=== PATIENT | male | born 1955 | race Caucasian/White ===

== ENCOUNTER → 2017-07-27 | Day surgery (SDC) | payer OTHER ==
[2017-07-21 14:39] VITALS: Ht 172.7 cm; Wt 84.1 kg
[~2017-07-27] VITALS: Ht 172.7 cm; Wt 84.1 kg
[~2017-07-27] MED LIST: 500ML BSS 0.3ML EPI 1:1000PF IRRIG ONE; ACETAMINOPHEN 325 MG TAB PO PRN; AMVISC PLUS 0.8ML SYRINGE INT OCU ONE; ASPECOTC PO; ATROPINE SULFATE 0.4 MG/ML 1 ML VIAL IV PRN; BSS FLUSH ONE; BUPR-79 PO; CHOL100027 PO; COEN1TAB3 PO; CYAN10004 PO; CYCLOPENTOLATE HCL 1% OP SOLN PER DROP CHARGE OPL SCH; ENDOCOAT 0.85ML SYRINGE INT OCU ONE; EpHEDrine SULFATE INJ 50 MG/ML AMP IV PRN; EpINEphrine INJ 1MG/ML AMP 1 MG/ML AMP ONE; GABA-112 PO; LACTATED RINGER'S 1000ML 500 ML IV SCH; LIDOCAINE 4% OP SOLN DROP CHARGE ONE; LIDOCAINE 4% OP SOLN DROP CHARGE OPL SCH; LIDOCAINE HCL 1% MPF 2 ML VIAL ONE; MIDAZOLAM HCL 1 MG/ML 2ML VIAL ONE; MIX: 4ML BSS 1ML EPI 1:1000 PF TOP ONE; MOXIFLOXACIN OPH SOLN PER DROP CHARGE ONE; MOXIFLOXACIN OPH SOLN PER DROP CHARGE OPL SCH; MULT-839 PO; PHENYLEPHRINE HCL 2.5% OP SOLN PER DROP CHARGE OPL SCH; POVIDONE-IODINE OP SOLN 30 ML BTL ONE; PRLSR20 PO; PROPARACAINE 0.5% OP SOLN PER DROP CHARGE OPL SCH; RANI150T85 PO; SAW450CA5 PO; SILD100T PO; SIMV20TA2 PO; TOBRAMYCIN/DEXAMETHASONE OPH OINT PER APPLN CHARGE ONE; TROPICAMIDE 1% OP SOLN PER DROP CHARGE OPL SCH
[2017-07-27] MEDS: PHENYLEPHRINE HCL 2.5% OP SOLN PER DROP CHARGE OPL SCH ×2 (08:28→08:33)
[2017-07-27] MEDS: TROPICAMIDE 1% OP SOLN PER DROP CHARGE OPL SCH ×2 (08:29→08:34)
[2017-07-27] MEDS: CYCLOPENTOLATE HCL 1% OP SOLN PER DROP CHARGE OPL SCH ×2 (08:30→08:34)
[2017-07-27] MEDS: MOXIFLOXACIN OPH SOLN PER DROP CHARGE OPL SCH ×2 (08:31→08:35)
--- NOTE | 2017-07-27 08:47 | History & Physical Bridge - SC ---
H&P Re-Evaluation Bridge Note: I have examined the patient, reviewed the History & Physical and in the interval since the performance of the History & Physical I have noted the following changes of clinical significance: No changes noted
--- NOTE | 2017-07-27 09:56 | [facility] Post Operative Brief Note ---
Immediate Operative Summary Operative Date Jul 27, 2017. Pre-Operative Diagnosis Left Eye Cataract Post-Operative Diagnosis Same Procedure(s) Performed Left Cataract Phacoemulsification With Intraocular Lens Implant Surgeon Dr. Tommy Patterson Corporate Scheduler Surgeon(s) None Estimated Blood Loss 0 Findings Consistent with Post-Op Diagnosis Specimens None Anesthesia Type MAC Complication(s) none Disposition Accompanied Pt To Recovery: no Disposition:
--- NOTE | 2017-07-27 09:57 | [facility] Operative Report ---
Operative Report Date of Service Jul 27, 2017. Operative Report DATE OF OPERATION: 07/27/17 PREOPERATIVE DIAGNOSIS: Senile nuclear cataract, left eye POSTOPERATIVE DIAGNOSIS: Senile nuclear cataract, left eye PROCEDURE PERFORMED: Phacoemulsification with intraocular lens implantation, left eye SURGEON: Dr. Oswaldo Patterson ANESTHESIA: Topical with 1% intracameral lidocaine and monitored anesthesia care COMPLICATIONS: None DESCRIPTION OF PROCEDURE: After positively identifying the patient both verbally and by wristband in the preoperative area, the left eye was marked as the operative eye. The patient was then brought back to the operating room by the anesthesia and nursing staff where they were given a drop of Lidocaine and betadine into the operative eye. They were then sterilely prepped and draped in the standard fashion typical for ophthalmic surgery. Steri-strips were placed along the upper eyelids to keep the lashes back, and a lid speculum was placed into the operative eye. At this point, a documented time out was performed with members of the ophthalmology, nursing, and anesthesia staffs all agreeing upon the correct patient, correct location for surgery, correct procedure, and correct type and power of intraocular lens to be implanted. The microscope was then swung into position. First, a paracentesis wound was made using a sideport blade. Then, in sequence, 1% preservative-free lidocaine followed by Endocoat viscoelastic was injected into the anterior chamber. Next , the main incision was made with a keratome blade in triplanar fashion. A sharp cystotome was introduced into the eye and used to create a tear in the anterior capsule, which was directed into a continuous curvilinear capsulorrhexis using Utrata forceps. Hydrodissection was then performed with BSS on a flat-tip cannula. Next, the phacoemulsification handpiece was introduced into the eye and used to remove the nucleus in a [id number] fashion. This was done without complication and then the irrigation-aspiration handpiece was introduced into the eye and used to remove all remaining cortical and epinuclear material. Amvisc was then injected into the anterior chamber as well as into the capsular bag and using the lens injector system, an MX60E 22.5 D lens, serial number [id number], and expiration date 03/2020 was injected into the capsular bag and rotated into the correct position. Next, the irrigation- aspiration handpiece was used to remove all remaining Amvisc. BSS was used to hydrate the main wound, and then BSS was injected into the paracentesis site to reach physiologic pressure and then the main wound was checked and found to be watertight. The patient was given drops of Vigamox and Tobradex ointment into the operative eye, and then the surrounding area was cleaned and dried. A clear plastic shield was placed over the eye and the patient was then sat up and taken from the operating room by the anesthesia staff having tolerated the procedure well and suffering no complications. DISPOSITION: The patient was returned to the recovery room in stable condition. I attest to the content of the Intraoperative Record and any orders documented therein. Any exceptions are noted below.
--- NOTE | 2017-07-27 09:58 | Discharge Instructions-SurgCtr ---
Discharge Instructions Date of Service Jul 27, 2017. Visit Reason for Visit: Cataract Left Eye Discharge Discharge Diagnosis / Problem: left cataract Discharge Goals Goal(s): Decrease discomfort, Improve function Activity Recommendations Activity Limitations: as noted below Anesthesia . Post Anesthesia Instructions: If you have had General Anesthesia or IV Sedation: * Do not drive today. * Resume driving when surgeon permits. * Do not make important decisions or sign legal documents today. * Call surgeon for: 1. Temperature elevations greater than 101 degrees F. 2. Uncontrollable pain. 3. Excessive bleeding. 4. Persistent nausea and vomiting. 5. Medication intolerance (nausea, vomiting or rash). * For nausea and vomiting use only clear liquids such as: tea, soda, bouillon until nausea subsides, then gradually increase diet as tolerated. * If you have any concerns or questions, call your surgeon's office. If physician is unavailable and it is an emergency, call 911 or go to the nearest emergency room. . Instructions / Follow-Up Instructions / Follow-Up ACTIVITY RECOMMENDATIONS: * Light activities. * You may walk outside, read, watch television. * You may notice redness on the white part of the eye and some blurry vision - this is normal. MEDICATIONS: Resume previous medications unless instructed otherwise by your surgeon. Start all eye drops at 12 pm today: * Eye drops (today): Prednisone - one drop in operative eye every 2 hours while awake Ofloxacin - one drop in operative eye every 2 hours while awake Ketorolac - one drop in operative eye 4 times daily SPECIAL CARE INSTRUCTIONS: * Tape plastic shield over eye to sleep at night. Call your doctor at with any concerns or problems. FOLLOW UP VISIT: Follow-up with Dr Patterson at [facility] as scheduled. Diet Recommendations Home Diet: no limitations Procedures Procedures Performed: Left Cataract Phacoemulsification With Intraocular Lens Implant Pending Studies Studies pending at discharge: no Medical Emergencies . Who to Call and When: Medical Emergencies: If at any time you feel your situation is an emergency, please call 911 immediately. . Non-Emergent Contact Non-Emergency issues call your: Surgeon . . "Provider Documentation" section prepared by Oswaldo Patterson. .
[2017-07-27 09:59] VITALS: TEMP 36.3
--- NOTE | 2017-07-27 10:24 | Anesthesia Progress Nt - [facility] ---
Anesthesia Post Op Note Date & Time Jul 27, 2017 at 10:23 Vital Signs Pain Intensity: 0 Vital Signs Past 12 Hours Date Time Temp Pulse Resp B/P (MAP) Pulse Ox O2 Delivery O2 Flow Rate FiO2 07/27/17 09:59 36.3 75 16 112/79 (90) 94 Room Air 07/27/17 08:19 36.5 70 18 128/84 (99) 94 Room Air Notes Mental Status: alert / awake / arousable, participated in evaluation Pt Amnestic to Procedure: Yes Nausea / Vomiting: adequately controlled Pain: adequately controlled Airway Patency, RR, SpO2: stable & adequate BP & HR: stable & adequate Hydration State: stable & adequate Anesthetic Complications: no major complications apparent
[2017-07-27 10:30] VITALS: BP 113/79; PULSE 61; O2SAT 95
== END | disposition home or self-care (01) ==
LOC: X.SURG 08:06
PROVIDERS: ATTEND Ophthalmology
DX: H25.12 Age-related nuclear cataract, left eye (principal); F32.9 Major depressive disorder, single episode, unspecified; Z98.41 Cataract extraction status, right eye; F17.200 Nicotine dependence, unspecified, uncomplicated

== ENCOUNTER 2019-01-25 13:30 | Inpatient (IN) ==
[2019-01-25] MEDS ORDERED: ASPIRIN CHEW 324 MG PO STA (14:18)
[2019-01-25 14:44] LABS: Base Excess VBG 1.8 mEq/L; Oxygen Saturation VBG 60.7 %; pH VBG 7.46 (7.36-7.41)
[2019-01-25 14:45] LABS: Basophils # (auto) 0.03 K/uL (0-0.2); Basophils % (auto) 0.3 %; Eosinophils % (auto) 5.4 %; Hematocrit (blood only) 46.7 % (42-52); Hemoglobin 17.1 g/dL (14.0-18.0); Immature Granulocytes # (auto) 0.06 K/uL (0.00-0.02); Immature Granulocytes % (auto) 0.6 %; Lymphocytes # (auto) 2.19 K/uL (1.2-3.4); Lymphocytes % (auto) 23.7 %; Mean Corpuscular Hemoglobin 31.3 pg (25-34); Mean Corpuscular Hgb Conc 36.6 g/dL (32-36); Mean Corpuscular Volume 85.4 fL (80-100); Mean Platelet Volume 8.8 fL (7.4-10.4); Monocytes % (auto) 10.8 %; Neutrophils # (auto) 5.47 K/uL (1.4-6.5); Neutrophils % (auto) 59.2 %; Platelet Count 186 K/uL (130-400); RDW Coefficient of Variation 14.2 % (11.5-14.5); Red Blood Count 5.47 M/uL (4.7-6.1); White Blood Count 9.25 K/uL (4.8-10.8)
[2019-01-25] MEDS ORDERED: ALBUT/IPRATROP 3MG/0.5MG NEB 3 ML VIAL NEB STA (14:48)
[2019-01-25] MEDS ORDERED: methylPREDNISolone 125 MG/2 ML VIAL IV STA (14:48)
[2019-01-25 14:56] LABS: Partial Thromboplastin Time 27.3 Seconds (21.0-31.0); Prothrombin Time 10.2 Seconds (9.0-12.0)
[2019-01-25 15:03] LABS: D Dimer 980 ug/L FEU (0-500)
[2019-01-25 15:05] LABS: BUN Creatinine Ratio 7.5 (10-20); Blood Urea Nitrogen 9 mg/dl (7-18); Calcium 8.6 mg/dl (8.5-10.1); Carbon Dioxide 24 mmol/L (21-32); Chloride 107 mmol/L (98-107); Creatinine Clr Calc Pharmacy 63.5 ml/min; Est GFR (African American) 73.1; Est GFR (Non-African American) 63.1; Glucose 96 mg/dl (70-99); Lipase 109 U/L (73-393); Potassium 4.2 mmol/L (3.5-5.1); Sodium 137 mmol/L (136-145)
[2019-01-25 15:10] LABS: Troponin I < 0.015 ng/ml (0-0.045)
--- NOTE | 2019-01-25 15:12 | XRay Report ---
XR chest 2V PA/lateral CLINICAL HISTORY: Atypical chest pain COMPARISON STUDY: No previous studies for comparison. FINDINGS: The heart is normal in size. The patient is mildly hyperinflated. There is no lobar consoli dation. There is mild basilar interstitial thickening. There is no pneumothorax.[ IMPRESSION: Mild interstitial thickening with a basilar predominance. This finding is of uncertain ch ronicity. There is no lobar consolidation. Electronically signed by: Marvel Zee M.D. 01/25/2019 3:11 PM
[2019-01-25] MEDS ORDERED: OPTIRAY 320 125ml IV PRN (15:38)
--- NOTE | 2019-01-25 15:57 | CT Scan Report ---
CT angio chest PE protocol CLINICAL HISTORY: 63 years-old Male presenting with atypical chest pain, clinical concern for pulmona ry embolus. TECHNIQUE: Multidetector CT angiography of the chest was performed after administration of intravenou s contrast. 3-D volumetric and/or maximum intensity projection (MIP) images were subsequently reconst ructed for review. IV contrast: Optiray 320. One or more dose lowering techniques were used consisten t with the principles of ALARA (as low as reasonably achievable), including automatic exposure contro l, mA or kV adjustment to individual patient size, and/or use of iterative reconstruction. COMPARISON: Chest x-ray from earlier today. CT DOSE (mGy.cm): The estimated cumulative dose is 500.28 mGy.cm. FINDINGS: Body Former topogram: Unremarkable. Pulmonary vasculature: The study is adequate for assessment of the pulmonary vascular tree. No filling defect within the pul monary arteries to suggest embolus. Main pulmonary artery is not enlarged. No flattening of the inter ventricular septum. No intracardiac filling defect. No reflux of contrast into the hepatic veins. Remaining chest: Soft tissues: Normal thyroid and thoracic inlet. Mediastinal lymph nodes measuring up to 17 mm primar hiro in the prevascular, aortopulmonary window, and precarinal regions. Smaller bilateral hilar lymph nodes are present. Atherosclerosis of the aorta. Normal heart size. Coronary artery calcification. No pericardial or pleural effusion. Upper abdomen normal. Lungs and airways: No pneumothorax. Defects likely debris within the lower trachea (series 4 image 188). Mild diffuse bronchial wall thic kening. Centrilobular emphysema noted. Pulmonary arteries are not significantly enlarged relative to adjacent bronchi. Mild interlobular septal thickening. Diffuse centrilobular groundglass nodularity m ost severely in the right upper lobe. Patchy added density of the lungs. Solid peripheral 10 mm nodul e containing a punctate eccentric calcification in the dependent right lower lobe (series 4 image 118 ). No additional nodules appreciated. Musculoskeletal: Normal osseous structures. IMPRESSION: 1. Centrilobular groundglass nodularity with patchy added density most prominently in the right uppe r lobe is most concerning for an infectious bronchiolitis or other atypical infectious etiology. This could also be inflammatory such as in the setting of smoking-related lung injury with severe respira tory bronchiolitis and/or desquamative interstitial pneumonia. Additional inflammatory etiologies are possible. 2. This is on a background of smoking related lung injury with emphysema and bronchitis. 3. Solid 10 mm right lower lobe pulmonary nodule. Follow-up per Fleischner Society 2017 criteria bel ow. 4. Mediastinal and bilateral hilar lymphadenopathy. This is most likely reactive but should be follo wed to exclude a neoplastic etiology. 5. No evidence of pulmonary embolus. Summary of Fleischner Society 2017 Recommendations (H Erasmo et al. Guidelines for management of i ncidental pulmonary nodules detected on CT images: From the Fleischner Society 2017. Radiology 2017; 284: 228-243.) SOLID NODULES Single nodule; size < 6 mm * Low risk patients: No routine follow-up * High risk patients: Optional CT at 12 months Single nodule; size 6-8 mm * Low risk patients: CT at 6-12 months, then consider CT at 18-24 months * High risk patients: CT at 6-12 months, then at 18-24 months Single nodule; size > 8 mm * Either low or high risk patients: Considered CT at 3 months, PET/CT, or tissue sampling Multiple nodules; size < 6 mm * Low risk patients: No routine follow up * High risk patients: Optional CT at 12 months Multiple nodules; size 6-8 mm * Low risk patients: CT at 3-6 months, then consider CT at 18-24 months * High risk patients: CT at 3-6 months, then at 18-24 months Multiple nodules; size > 8 mm * Low risk patients: CT at 3-6 months, then consider at 18-24 months * High risk patients: CT at 3-6 months, then at 18-24 months SUBSOLID NODULES Single ground-glass nodule * Nodule size < 6 mm: No routine follow-up * Nodule size > or = 6 mm: CT at 6-12 months to confirm persistence, then CT every 2 years until 5 y ears Single part-solid nodule * Nodule size < 6 mm: No routine follow-up * Nodules size > or = 6 mm: CT at 3-6 months to confirm persistence. If unchanged and solid componen t remains < 6 mm, annual CT should be performed for 5 years Multiple nodules * Nodule size < 6 mm: CT at 3-6 months. If stable, consider CT at 2 and 4 years. * Nodules size > or = 6 mm: CT at 3-6 months. Subsequent management based on the most suspicious nod ule(s) NOTE: 1) These guidelines apply to incidental nodules. These guidelines do NOT apply to patients younger th an 35 years, immunocompromised patients, or patients with cancer. 2) Risk categories: * Low risk patients: Minimal or absent history of smoking and/or other known risk factors * High risk patients: History of smoking, exposure to other carcinogens, emphysema, fibrosis, upper lobe location, family history of lung cancer, etc. 3) If a nodule up to 8 mm is partly solid or is ground glass, further follow-up is required after 24 months to exclude possible slow growing adenocarcinoma. Electronically signed by: Ton Frias M.D. 01/25/2019 3:56 PM
[2019-01-25] MEDS ORDERED: cefTRIAXone SODIUM 1 GM ADDVIAL IV STA (16:28)
[2019-01-25] MEDS ORDERED: AZITHROMYCIN 250 MG TAB PO ONE (16:28)
[2019-01-25] MEDS ORDERED: cefTRIAXone SODIUM 1000MG/50ML D5W IV ONE (16:53)
--- NOTE | 2019-01-25 17:53 | History & Physical Report ---
Date of Service January 25, 2019 Assessment & Plan (1) COPD with hypoxia: (2) Hypoxia: (3) Pneumonia: (4) Respiratory distress: (5) COPD exacerbation: Patient was started on Rocephin and Zithromax in the ER. Continue the same. Add IV Solu-Medrol. DuoNeb breathing treatment per protocol. May consider pulmonary consultation if not symptomatically better by a.m. Continue with DVT prophylaxis. Repeat labs in a.m. CODE STATUS full code. Titrate nasal cannula oxygen according to pulse ox to keep pulse ox more than 92%. History of Present Illness Chief Complaint: sob Primary Care Provider: Rose Marie Hall The patient is 63 years old male with history of COPD and chronic shortness of breath. Today the patient is complaining of increasing shortness of breath and wheezing and his nasal cannula oxygen requirements are high. He denies any fever. No hemoptysis. He has occasional cough. No chest pain. He is complaining of chest congestion. The patient states that he is up-to-date with his flu vaccination and pneumonia vaccination. He is ex-smoker. Further work-up done in the ER shows that patient has COPD exacerbation and right-sided pneumonia. He will be admitted for further evaluation and management. Patient was started on IV antibiotics and IV steroids in the emergency room. Allergies Allergy/AdvReac Type Severity Reaction Status Date / Time No Known Drug Allergies Allergy Unknown . Verified 01/25/19 15:06 Kerosene Allergy Unknown RASH, Uncoded 01/25/19 15:06 LIGHTHEADED AND SICKNESS PETROLEUM AdvReac Unknown NAUSEA Uncoded 01/25/19 15:06 WITH INHALATION, SKIN BUBBLES WITH CONTACT Home Medications Home Medications Medication Instructions Recorded Confirmed Type albuterol sulfate 2 puff INHALATION Q4H PRN 01/25/19 01/25/19 History aspirin 325 mg PO QDL 01/25/19 01/25/19 History atorvastatin [Lipitor] 40 mg PO DAILY 01/25/19 01/25/19 History cholecalciferol (vitamin D3) 1,000 unit PO DAILY 01/25/19 01/25/19 History coQ10 (ubiquinol) 100 mg PO BID 01/25/19 01/25/19 History cyanocobalamin (vitamin B-12) 1,000 mcg PO DAILY 01/25/19 01/25/19 History gabapentin 100 mg PO TID 01/25/19 01/25/19 History omeprazole magnesium [Prilosec OTC] 20 mg PO DAILY PRN 01/25/19 01/25/19 History saw pal-pumpkin [id number] [Saw 5 cap PO DAILY 01/25/19 01/25/19 History Wells Complex(pumpk-Zn)] tiotropium-olodaterol [Stiolto 2 puff INHALATION DAILY 01/25/19 01/25/19 History Respimat] Past Med/Surg History Medical History COPD (chronic obstructive pulmonary disease) Social History Preferred Language: Guamanian Communication Ability: Effective 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 Feeder Required: No Beliefs That Will Affect Care: None Current Living Situation: Spouse Other Information That Helps Us Care for You: No Feels Safe at Home: Yes Safety Concerns: Feels Safe At This Time Smoking Status: Former smoker Hx Alcohol Use: No Hx Substance Use: No Review of Systems Review of Systems: All systems reviewed & are unremarkable except as noted in HPI & below Respiratory: + cough, + chest congestion, + dyspnea, + dyspnea on exertion and + wheezing Physical Exam Physical Exam: GENERAL : No acute distress EYES: No icterus, gaze conjugate NOSE: No evidence of epistaxis MOUTH: No lesions or candidiasis, mucosa moist NECK: Supple LUNGS: Bilateral decreased breath sounds with few rhonchi present bilaterally. HEART: Regular, rate controlled ABDOMEN: Soft, NT, ND, BS Present EXTREMITIES: No LE edema, pedal pulses intact NEURO: A&OX3 Results & Data Vital Signs (Past 12 Hours) Vital Signs Temp Pulse Pulse Resp BP Pulse Ox 01/25/19 16:30 88 19 109/71 87 L 01/25/19 16:00 90 22 102/83 90 01/25/19 15:30 88 21 90 01/25/19 15:10 77 16 99 01/25/19 15:00 78 18 114/81 01/25/19 14:41 96 H 22 91 01/25/19 14:38 89 21 90 01/25/19 14:37 92 H 22 103/68 88 L 01/25/19 14:30 88 21 88 L 01/25/19 14:00 83 18 115/71 95 01/25/19 13:50 98.1 F 97 H 22 110/76 95 01/25/19 13:37 101 H 20 117/74 91 01/25/19 13:34 104 H 20 110/76 92 Laboratory Results 01/25/19 01/25/19 01/25/19 Range/Units 16:43 14:26 14:26 WBC (4.8-10.8) K/uL RBC (4.7-6.1) M/uL Hgb (14.0-18.0) g/dL Hct (42-52) % MCV (80-100) fL MCH (25-34) pg MCHC (32-36) g/dL RDW Std Deviation (36.4-46.3) fL RDW Coeff of Merrick (11.5-14.5) % Plt Count (130-400) K/uL MPV (7.4-10.4) fL Immature Gran % (Auto) % Neut % (Auto) % Lymph % (Auto) % [place] % (Auto) % Eos % (Auto) % Baso % (Auto) % Immature Gran # (Auto) (0.00-0.02) K/uL Neut # (Auto) (1.4-6.5) K/uL Lymph # (Auto) (1.2-3.4) K/uL [place] # (Auto) (0.11-0.59) K/uL Eos # (Auto) (0-0.5) K/uL Baso # (Auto) (0-0.2) K/uL PT 10.2 (9.0-12.0) Seconds INR 1.0 (0.9-1.1) APTT 27.3 (21.0-31.0) Seconds PTT Ratio 1.0 D-Dimer (0-500) ug/L FEU VBG pH 7.46 H (7.36-7.41) VBG pCO2 36 L (38-50) mmHg VBG pO2 30 mmHg VBG HCO3 25 mmol/L VBG O2 Saturation 60.7 % VBG Base Excess 1.8 mEq/L Barometric Pressure 722.9 mm/Hg Sodium (136-145) mmol/L Potassium (3.5-5.1) mmol/L Chloride (98-107) mmol/L Carbon Dioxide (21-32) mmol/L Anion Gap (3-11) BUN (7-18) mg/dl Creatinine (0.6-1.4) mg/dl Est Cr Clr Drug Dosing ml/min Est GFR ( Amer) Est GFR (Non-Af Amer) BUN/Creatinine Ratio (10-20) Glucose (70-99) mg/dl Calcium (8.5-10.1) mg/dl Troponin I (0-0.045) ng/ml Lipase (73-393) U/L Procalcitonin Pending 01/25/19 01/25/19 01/25/19 Range/Units 14:26 14:26 14:26 WBC 9.25 (4.8-10.8) K/uL RBC 5.47 (4.7-6.1) M/uL Hgb 17.1 (14.0-18.0) g/dL Hct 46.7 (42-52) % MCV 85.4 (80-100) fL MCH 31.3 (25-34) pg MCHC 36.6 H (32-36) g/dL RDW Std Deviation 44.0 (36.4-46.3) fL RDW Coeff of Merrick 14.2 (11.5-14.5) % Plt Count 186 (130-400) K/uL MPV 8.8 (7.4-10.4) fL Immature Gran % (Auto) 0.6 % Neut % (Auto) 59.2 % Lymph % (Auto) 23.7 % [place] % (Auto) 10.8 % Eos % (Auto) 5.4 % Baso % (Auto) 0.3 % Immature Gran # (Auto) 0.06 H (0.00-0.02) K/uL Neut # (Auto) 5.47 (1.4-6.5) K/uL Lymph # (Auto) 2.19 (1.2-3.4) K/uL [place] # (Auto) 1.00 H (0.11-0.59) K/uL Eos # (Auto) 0.50 (0-0.5) K/uL Baso # (Auto) 0.03 (0-0.2) K/uL PT (9.0-12.0) Seconds INR (0.9-1.1) APTT (21.0-31.0) Seconds PTT Ratio D-Dimer 980 H* (0-500) ug/L FEU VBG pH (7.36-7.41) VBG pCO2 (38-50) mmHg VBG pO2 mmHg VBG HCO3 mmol/L VBG O2 Saturation % VBG Base Excess mEq/L Barometric Pressure mm/Hg Sodium 137 (136-145) mmol/L Potassium 4.2 (3.5-5.1) mmol/L Chloride 107 (98-107) mmol/L Carbon Dioxide 24 (21-32) mmol/L Anion Gap 6.0 (3-11) BUN 9 (7-18) mg/dl Creatinine 1.20 (0.6-1.4) mg/dl Est Cr Clr Drug Dosing 63.5 ml/min Est GFR ( Amer) 73.1 Est GFR (Non-Af Amer) 63.1 BUN/Creatinine Ratio 7.5 L (10-20) Glucose 96 (70-99) mg/dl Calcium 8.6 (8.5-10.1) mg/dl Troponin I < 0.015 (0-0.045) ng/ml Lipase 109 (73-393) U/L Procalcitonin 01/25/19 14:26 01/25/19 14:26 Diagnostic Findings imated cumulative dose is 500.28 mGy.cm. FINDINGS: Warehousing Technician topogram: Unremarkable. Pulmonary vasculature: The study is adequate for assessment of the pulmonary vascular tree. No filling defect within the pulmonary arteries to suggest embolus. Main pulmonary artery is not enlarged. No flattening of the interventricular septum. No intracardiac filling defect. No reflux of contrast into the hepatic veins. Remaining chest: Soft tissues: Normal thyroid and thoracic inlet. Mediastinal lymph nodes measuring up to 17 mm primarily in the prevascular, aortopulmonary window, and precarinal regions. Smaller bilateral hilar lymph nodes are present. Atherosclerosis of the aorta. Normal heart size. Coronary artery calcification. No pericardial or pleural effusion. Upper abdomen normal. Lungs and airways: No pneumothorax. Defects likely debris within the lower trachea (series 4 image 188). Mild diffuse bronchial wall thickening. Centrilobular emphysema noted. Pulmonary ar teries are not significantly enlarged relative to adjacent bronchi. Mild interlobular septal thickening. Diffuse centrilobular groundglass nodularity most severely in the right upper lobe. Patchy added density of the lungs. Solid peripheral 10 mm nodule containing a punctate eccentric calcification in the dependent right lower lobe (series 4 image 118). No additional nodules appreciated. Musculoskeletal: Normal osseous structures. IMPRESSION: 1. Centrilobular groundglass nodularity with patchy added density most prominently in the right upper lobe is most concerning for an infectious bronch iolitis or other atypical infectious etiology. This could also be inflammatory such as in the setting of smoking-related lung injury with severe respiratory bronchiolitis and/or desquamative interstitial pneumonia. Additional inflammatory etiologies are possible. 2. This is on a background of smoking related lung injury with emphysema and bronchitis. 3. Solid 10 mm right lower lobe pulmonary nodule. Follow-up per Fleischner Society 2017 criteria below. 4. Mediastinal and bilateral hilar lymphadenopathy. This is most likely reactive but should be followed to exclude a neoplastic etiology. 5. No evidence of pulmonary embolus Code Status & VTE Plan Code Status Full code VTE Prophylaxis Plan VTE Prophylaxis will be ordered: Yes PG Care Time/CCT Total # of Minutes Spent Total Time Spent with Patient: Total time spent is greater than 50% in coordination of care (as documented) at patient's floor/unit and/or counseling patient: 60 min
--- NOTE | 2019-01-25 17:55 | Emergency Department Note ---
Entered by Cathi Lisa acting as a scribe for Fabio Barillas History of Present Illness General Chief complaint: Shortness of Breath/Dyspnea Stated complaint: sob Time Seen by Provider: 01/25/19 14:11 Source: patient Mode of arrival: ambulatory Limitations: no limitations History of Present Illness Onset (ago): day(s) 2 Location: chest Radiation: non-radiation Pain Consistency: + constant Relieved By: + other (Oxygen, inhaler) Exacerbated By: + none Associated symptoms: no chest pain Treatments prior to arrival: other (Oxygen, inhaler) The patient is a 63 year old male who presents to the ED with complaints of shortness of breath. He was at the [facility] earlier today and states he told his nurse about some increased difficulty breathing, so she put him on a pulse ox and noticed low Oxygen and referred him here to the ED. He does not usually wear Oxygen and states it has provided minimal relief here in the ED. An inhaler has provided some relief as well. He admits to a recent diagnoses of COPD. He does take a daily Aspirin. He denies any recent chest pain. He denies any recent weight gain or swelling in his extremities. Home Medications Home Medications Medication Instructions Recorded Confirmed Type albuterol sulfate 2 puff INHALATION Q4H PRN 01/25/19 01/25/19 History aspirin 325 mg PO QDL 01/25/19 01/25/19 History atorvastatin [Lipitor] 40 mg PO DAILY 01/25/19 01/25/19 History cholecalciferol (vitamin D3) 1,000 unit PO DAILY 01/25/19 01/25/19 History coQ10 (ubiquinol) 100 mg PO BID 01/25/19 01/25/19 History cyanocobalamin (vitamin B-12) 1,000 mcg PO DAILY 01/25/19 01/25/19 History gabapentin 100 mg PO TID 01/25/19 01/25/19 History omeprazole magnesium [Prilosec OTC] 20 mg PO DAILY PRN 01/25/19 01/25/19 History saw pal-pumpkin [id number] [Saw 5 cap PO DAILY 01/25/19 01/25/19 History Mclean Complex(pumpk-Zn)] tiotropium-olodaterol [Stiolto 2 puff INHALATION DAILY 01/25/19 01/25/19 History Respimat] Allergies Allergy/AdvReac Type Severity Reaction Status Date / Time No Known Drug Allergies Allergy Unknown . 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 and A total of 10 systems reviewed and were otherwise negative Physical Exam Vital Signs Vital Signs - 24 hr 01/25/19 13:34 01/25/19 13:37 01/25/19 13:50 Temperature 36.7 C Temperature Source Oral Sepsis Recent Fever Within 48 Hours No Sepsis Action Taken by Nursing No Action Required Oxygen Flow Rate - Titration Pulse Oximetry Post Tiitration Pulse Rate 104 H 101 H 97 H Pulse Rate [Right Apical] Pulse Rate from SpO2 Sensor 101 H 99 H Respiratory Rate 20 20 22 Respiratory Effort / Characteristics Non-Labored Spontaneous Respiratory Depth Normal Respiratory Pattern Regular Blood Pressure 110/76 117/74 110/76 Blood Pressure Mean 87 88 87 Pulse Oximetry 92 91 95 Oxygen Delivery Method Room Air Oxygen Flow Rate 01/25/19 14:00 01/25/19 14:30 01/25/19 14:37 Temperature Temperature Source Sepsis Recent Fever Within 48 Hours Sepsis Action Taken by Nursing Oxygen Flow Rate - Titration Pulse Oximetry Post Tiitration Pulse Rate 83 88 92 H Pulse Rate [Right Apical] Pulse Rate from SpO2 Sensor 88 88 96 H Respiratory Rate 18 21 22 Respiratory Effort / Characteristics Respiratory Depth Respiratory Pattern Blood Pressure 115/71 103/68 Blood Pressure Mean 85 79 Pulse Oximetry 95 88 L 88 L Oxygen Delivery Method Oxygen Flow Rate 01/25/19 14:38 01/25/19 14:41 01/25/19 15:00 Temperature Temperature Source Sepsis Recent Fever Within 48 Hours Sepsis Action Taken by Nursing Oxygen Flow Rate - Titration 2 Pulse Oximetry Post Tiitration 91 Pulse Rate 89 96 H 78 Pulse Rate [Right Apical] Pulse Rate from SpO2 Sensor 89 Respiratory Rate 21 22 18 Respiratory Effort / Characteristics Respiratory Depth Respiratory Pattern Blood Pressure 114/81 Blood Pressure Mean 92 Pulse Oximetry 90 91 Oxygen Delivery Method Room Air Oxygen Flow Rate 01/25/19 15:10 01/25/19 15:30 01/25/19 16:00 Temperature Temperature Source Sepsis Recent Fever Within 48 Hours Sepsis Action Taken by Nursing Oxygen Flow Rate - Titration Pulse Oximetry Post Tiitration Pulse Rate 88 90 Pulse Rate [Right Apical] 77 Pulse Rate from SpO2 Sensor 83 89 Respiratory Rate 16 21 22 Respiratory Effort / Characteristics Non-Labored Spontaneous Respiratory Depth Respiratory Pattern Blood Pressure 102/83 Blood Pressure Mean 89 Pulse Oximetry 99 90 90 Oxygen Delivery Method Nasal Cannula Oxygen Flow Rate 2 01/25/19 16:30 01/25/19 17:00 Temperature Temperature Source Sepsis Recent Fever Within 48 Hours Sepsis Action Taken by Nursing Oxygen Flow Rate - Titration Pulse Oximetry Post Tiitration Pulse Rate 88 93 H Pulse Rate [Right Apical] Pulse Rate from SpO2 Sensor 87 91 H Respiratory Rate 19 18 Respiratory Effort / Characteristics Respiratory Depth Respiratory Pattern Blood Pressure 109/71 111/71 Blood Pressure Mean 83 84 Pulse Oximetry 87 L 91 Oxygen Delivery Method Oxygen Flow Rate GENERAL: He is oriented to person, place, and time. He appears well-developed and well-nourished. He does not appear distressed. HENT: Exam performed. - Head: Normocephalic and atraumatic. - Right Ear: External ear normal. No mastoid tenderness. - Left Ear: External ear normal. No mastoid tenderness. - Mouth/Throat: The oropharynx is clear and moist. No trismus in the jaw. No dental abscesses or uvula swelling. No oropharyngeal exudate or tonsillar abscesses. EYES: Conjunctivae and EOM are normal. Pupils are equal, round, and reactive to light. Right eye exhibits no discharge. Left eye exhibits no discharge. No scleral icterus. NECK: Normal range of motion. Neck supple. No JVD present. No spinous process tenderness present. No carotid bruit present. No rigidity. No tracheal deviation and normal range of motion present. No Brudzinski's sign and no Kernig's sign noted. CV: Normal rate, regular rhythm, normal heart sounds and intact distal pulses. There is no peripheral edema. Palpable radial pulses bue. PULM/CHEST: Effort normal and breath sounds normal. No respiratory distress. No stridor. He has no wheezes. He has no rales. - Chest Wall: He exhibits no tenderness. ABD: The abdomen is soft. Bowel sounds are normal. He has no distension. No mass is present. There is no tenderness. There is no rebound, no guarding, no Garcia's sign and no tenderness at McBurney's point. Rovsig negative. MUSC/SKEL: Normal range of motion. There is no peripheral edema, tenderness or deformity. LYMPH: No cervical adenopathy. NEURO: He is alert and oriented to person, place, and time. He has normal strength. No cranial nerve deficit or sensory deficit. Coordination and gait normal. GCS eye subscore is 4. GCS verbal subscore is 5. GCS motor subscore is 6. Cerebellar tests wnl. SKIN: Skin is warm and dry. He is not diaphoretic. PSYCH: He has a normal mood and affect. Behavior is normal. Judgment and thought content normal. Course 1413: The patient was evaluated in room B11 and a complete history and physical were performed. 1438: Nursing informed me his O2 fell to 87% on room air. He was placed on 2 Liters NC. 1635: Patient remains hypoxic on 2 L nasal cannula. Oxygen was moved up to 4 L nasal cannula. VS stable on 4L NC. Patient CTA chest shows no PE, however it does show findings concerning for pneumonia. He will be treated with Azithromycin and Rocephin and will be admitted to the hospital service. 1639: I discussed the patients case with Dr. Ha, [facility]. The patient will be further evaluated. Consultations Consultation #1: I discussed the patients case with Dr. Ha [facility]. The patient will be further evaluated. Time: 16:39 Administered Medications Ioversol (Optiray 320 125ml) 115 ml IV ONCE PRN PRN Reason: Interaction Checking Stop: 01/29/19 15:37 Last Admin: 01/25/19 15:38 Dose: 115 ml Documented by: [id number] Discontinued Medications Albuterol (Duoneb) 3 ml NEB NOW STA Stop: 01/25/19 14:49 Last Admin: 10/17/19 15:09 Dose: 3 ml Documented by: [id number] Aspirin (Aspirin) 324 mg PO NOW STA Stop: 01/25/19 14:19 Last Admin: 01/25/19 14:42 Dose: 324 mg Documented by: [id number] Azithromycin (Zithromax) 500 mg PO NOW ONE Stop: 01/25/19 16:29 Last Admin: 01/25/19 16:54 Dose: 500 mg Documented by: [id number] Ceftriaxone Sodium (Rocephin) 1,000 mg IV NOW STA Stop: 01/25/19 16:29 Last Admin: 01/25/19 16:54 Dose: Not Given Documented by: [id number] Ceftriaxone Sodium (Rocephin) Confirm Administered Dose 1,000 mg IV .STK-MED ONE Stop: 01/25/19 16:54 Last Admin: 01/25/19 16:54 Dose: 1,000 mg Documented by: [id number] Methylprednisolone (Solumedrol) 125 mg IV NOW STA Stop: 01/25/19 14:49 Last Admin: 01/25/19 14:56 Dose: 125 mg Documented by: [id number] Medical Decision Making Medical Records Attestation: I reviewed the patient's medical records. Home Medications Current Medication List: was personally reviewed by me Laboratory Data Attestation: I reviewed the patient's lab results. Result diagrams: 01/25/19 14:26 01/25/19 14:26 Lab Results 01/25/19 01/25/19 01/25/19 Range/Units 14:26 14:26 14:26 WBC 9.25 (4.8-10.8) K/uL RBC 5.47 (4.7-6.1) M/uL Hgb 17.1 (14.0-18.0) g/dL Hct 46.7 (42-52) % MCV 85.4 (80-100) fL MCH 31.3 (25-34) pg MCHC 36.6 H (32-36) g/dL RDW Std Deviation 44.0 (36.4-46.3) fL RDW Coeff of Merrick 14.2 (11.5-14.5) % Plt Count 186 (130-400) K/uL MPV 8.8 (7.4-10.4) fL Immature Gran % (Auto) 0.6 % Neut % (Auto) 59.2 % Lymph % (Auto) 23.7 % Elk % (Auto) 10.8 % Eos % (Auto) 5.4 % Baso % (Auto) 0.3 % Immature Gran # (Auto) 0.06 H (0.00-0.02) K/uL Neut # (Auto) 5.47 (1.4-6.5) K/uL Lymph # (Auto) 2.19 (1.2-3.4) K/uL Elk # (Auto) 1.00 H (0.11-0.59) K/uL Eos # (Auto) 0.50 (0-0.5) K/uL Baso # (Auto) 0.03 (0-0.2) K/uL PT (9.0-12.0) Seconds INR (0.9-1.1) APTT (21.0-31.0) Seconds PTT Ratio D-Dimer 980 H* (0-500) ug/L FEU VBG pH (7.36-7.41) VBG pCO2 (38-50) mmHg VBG pO2 mmHg VBG HCO3 mmol/L VBG O2 Saturation % VBG Base Excess mEq/L Barometric Pressure mm/Hg Sodium 137 (136-145) mmol/L Potassium 4.2 (3.5-5.1) mmol/L Chloride 107 (98-107) mmol/L Carbon Dioxide 24 (21-32) mmol/L Anion Gap 6.0 (3-11) BUN 9 (7-18) mg/dl Creatinine 1.20 (0.6-1.4) mg/dl Est Cr Clr Drug Dosing 63.5 ml/min Est GFR ( Amer) 73.1 Est GFR (Non-Af Amer) 63.1 BUN/Creatinine Ratio 7.5 L (10-20) Glucose 96 (70-99) mg/dl Calcium 8.6 (8.5-10.1) mg/dl Troponin I < 0.015 (0-0.045) ng/ml Lipase 109 (73-393) U/L Procalcitonin (0-0.5) ng/ml 01/25/19 01/25/19 01/25/19 Range/Units 14:26 14:26 16:43 WBC (4.8-10.8) K/uL RBC (4.7-6.1) M/uL Hgb (14.0-18.0) g/dL Hct (42-52) % MCV (80-100) fL MCH (25-34) pg MCHC (32-36) g/dL RDW Std Deviation (36.4-46.3) fL RDW Coeff of Merrick (11.5-14.5) % Plt Count (130-400) K/uL MPV (7.4-10.4) fL Immature Gran % (Auto) % Neut % (Auto) % Lymph % (Auto) % Elk % (Auto) % Eos % (Auto) % Baso % (Auto) % Immature Gran # (Auto) (0.00-0.02) K/uL Neut # (Auto) (1.4-6.5) K/uL Lymph # (Auto) (1.2-3.4) K/uL Elk # (Auto) (0.11-0.59) K/uL Eos # (Auto) (0-0.5) K/uL Baso # (Auto) (0-0.2) K/uL PT 10.2 (9.0-12.0) Seconds INR 1.0 (0.9-1.1) APTT 27.3 (21.0-31.0) Seconds PTT Ratio 1.0 D-Dimer (0-500) ug/L FEU VBG pH 7.46 H (7.36-7.41) VBG pCO2 36 L (38-50) mmHg VBG pO2 30 mmHg VBG HCO3 25 mmol/L VBG O2 Saturation 60.7 % VBG Base Excess 1.8 mEq/L Barometric Pressure 722.9 mm/Hg Sodium (136-145) mmol/L Potassium (3.5-5.1) mmol/L Chloride (98-107) mmol/L Carbon Dioxide (21-32) mmol/L Anion Gap (3-11) BUN (7-18) mg/dl Creatinine (0.6-1.4) mg/dl Est Cr Clr Drug Dosing ml/min Est GFR ( Amer) Est GFR (Non-Af Amer) BUN/Creatinine Ratio (10-20) Glucose (70-99) mg/dl Calcium (8.5-10.1) mg/dl Troponin I (0-0.045) ng/ml Lipase (73-393) U/L Procalcitonin < 0.05 (0-0.5) ng/ml Imaging Data Radiologist's Impression: Radiology results as stated below per my review and the radiologist's interpretation: CT angio chest PE protocol CLINICAL HISTORY: 63 years-old Male presenting with atypical chest pain, clinical concern for pulmonary embolus. TECHNIQUE: Multidetector CT angiography of the chest was performed after administration of intravenous contrast. 3-D volumetric and/or maximum intensity projection (MIP) images were subsequently reconstructed for review. IV contrast: Optiray 320. One or more dose lowering techniques were used consistent with the principles of ALARA (as low as reasonably achievable), including automatic ex posure control, mA or kV adjustment to individual patient size, and/or use of iterative reconstruction. COMPARISON: Chest x-ray from earlier today. CT DOSE (mGy.cm): The estimated cumulative dose is 500.28 mGy.cm. FINDINGS: Quality Assurance Clerk topogram: Unremarkable. Pulmonary vasculature: The study is adequate for assessment of the pulmonary vascular tree. No filling defect within the pulmonary arteries to suggest embolus. Main pulmonary artery is not enlarged. No flattening of the interventricular septum. No intracardiac filling defect. No reflux of contrast into the hepatic veins. Remaining chest: Soft tissues: Normal thyroid and thoracic inlet. Mediastinal lymph nodes measuring up to 17 mm primarily in the prevascular, aortopulmonary window, and precarinal regions. Smaller bilateral hilar lymph nodes are present. Atherosclerosis of the aorta. Normal heart size. Coronary artery calcification. No pericardial or pleural effusion. Upper abdomen normal. Lungs and airways: No pneumothorax. Defects likely debris within the lower trachea (series 4 image 188). Mild diffuse bronchial wall thickening. Centrilobular emphysema noted. Pulmonary arteries are not significantly enlarged relative to adjacent bronchi. Mild interlobular septal thickening. Diffuse centrilobular groundglass nodularity most severely in the right upper lobe. Patchy added density of the lungs. Solid peripheral 10 mm nodule containing a punctate eccentric calcification in the dependent right lower lobe (series 4 image 118). No additional nodules appreciated. Musculoskeletal: Normal osseous structures. IMPRESSION: 1. Centrilobular groundglass nodularity with patchy added density most prominently in the right upper lobe is most concerning for an infectious bronchiolitis or other atypical infectious etiology. This could also be inflammatory such as in the setting of smoking-related lung injury with severe respiratory bronchiolitis and/or desquamative interstitial pneumonia. Additional inflammatory etiologies are possible. 2. This is on a background of smoking related lung injury with emphysema and bronchitis. 3. Solid 10 mm right lower lobe pulmonary nodule. Follow-up per Fleischner Society 2017 criteria below. 4. Mediastinal and bilateral hilar lymphadenopathy. This is most likely reactive but should be followed to exclude a neoplastic etiology. 5. No evidence of pulmonary embolus. Summary of Fleischner Society 2017 Recommendations (H Erasmo et al. Guidelines for management of incidental pulmonary nodules detected on CT images: From the Fleischner Society 2017. Radiology 2017; 284: 228-243.) Electronically signed by: Ton Frias M.D. 01/25/2019 3:56 PM XR chest 2V PA/lateral CLINICAL HISTORY: Atypical chest pain COMPARISON STUDY: No previous studies for comparison. FINDINGS: The heart is normal in size. The patient is mildly hyperinflated. There is no lobar consolidation. There is mild basilar interstitial thickening. There is no pneumothorax. IMPRESSION: Mild interstitial thickening with a basilar predominance. This finding is of uncertain chronicity. There is no lobar consolidation. Electronically signed by: Marvel Zee M.D. 01/25/2019 3:11 PM ECG Data Attestation: I personally reviewed and interpreted this ECG as follows: Indication: SOB/dyspnea Rate (beats per minute): 73 Rhythm: sinus rhythm Findings: + other (MT, QRS and QTC within normal limits); no ST depression and no ST elevation Blood Pressure Blood Pressure Findings: Normal blood pressure Blood Pressure Disposition: did not require urgent referral MDM Narrative 1413: The patient was evaluated in room B11 and a complete history and physical were performed. 1438: Nursing informed me his O2 fell to 87% on room air. He was placed on 2 Liters NC. 1635: Patient remains hypoxic on 2 L nasal cannula. Oxygen was moved up to 4 L nasal cannula. VS stable on 4L NC. Patient CTA chest shows no PE, however it does show findings concerning for pneumonia. He will be treated with Azithromycin and Rocephin and will be admitted to the hospital service. 1639: I discussed the patients case with Dr. [facility] Hospitalist. The patient will be further evaluated. Impression & Plan Hypoxia, Pneumonia Critical Care Time Critical Care Time: Yes Total Critical Care Time: 43 I have personally spent 43 minutes of critical care time in the direct management of this patient. This includes bedside care, interpretation of diagnostic studies, and testing, discussion with consultants, patient, and family members, and other required patient management activities. This 43 minutes is in excess of all separately billable procedures. Discharge Plan Visit Data Chief Complaint: Shortness of Breath/Dyspnea Stated Complaint: sob ED Provider: Fabio Barillas Discharge Problem: Hypoxia, Pneumonia Patient Disposition: Being Evaluated by Hospitalist Discharge Instructions Interventions: ED Discharge Assessment Last Done: 01/25/19 17:51 The scribe's documentation has been prepared under my direction and personally reviewed by me in its entirety. I confirm that the note above accurately reflects all work, treatment, procedures, and medical decision making performed by me.
[2019-01-25] MEDS ORDERED: PANTOprazole 40 MG TAB PO PRN (18:51)
[2019-01-25] MEDS: ALBUT/IPRATROP 3MG/0.5MG NEB 3 ML VIAL NEB SCH (20:01)
[2019-01-25] MEDS: GABAPENTIN 100 MG CAP PO SCH (20:54)
[2019-01-25] MEDS ORDERED: Nursing to Pharmacy Communication ONE (21:04)
[2019-01-25] MEDS: methylPREDNISolone 40 MG in SYRINGE 0 ML IV SCH (22:06)
[2019-01-25] MEDS ORDERED: SODIUM CHLORIDE 0.65% NA SOLN 45 ML (OCEAN) ONE (23:33)
[2019-01-26] MEDS: methylPREDNISolone 40 MG in SYRINGE 0 ML IV SCH ×2 (06:15→13:47)
[2019-01-26] MEDS: ALBUT/IPRATROP 3MG/0.5MG NEB 3 ML VIAL NEB SCH ×2 (06:58→11:15)
[2019-01-26] MEDS: GABAPENTIN 100 MG CAP PO SCH ×2 (08:01→13:47)
[2019-01-26 08:45] LABS: BUN Creatinine Ratio 12.9 (10-20); Calcium 8.9 mg/dl (8.5-10.1); Creatinine Clr Calc Pharmacy 61.6 ml/min; Est GFR (African American) 68.9; Est GFR (Non-African American) 59.5
[2019-01-26] MEDS ORDERED: ATORVASTATIN 40 MG TAB PO SCH ×2 (09:00→21:00)
[2019-01-26] MEDS ORDERED: CYANOCOBALAMIN 500 MCG TABLET (VITAMIN B-12) PO SCH (09:00)
[2019-01-26] MEDS ORDERED: ASPIRIN 325 MG ECTAB PO SCH (11:30)
--- NOTE | 2019-01-26 12:38 | Discharge Summary ---
Date of Service January 26, 2019 Admission HPI Per Admitting Provider The patient is 63 years old male with history of COPD and chronic shortness of breath. Today the patient is complaining of increasing shortness of breath and wheezing and his nasal cannula oxygen requirements are high. He denies any fever. No hemoptysis. He has occasional cough. No chest pain. He is complaining of chest congestion. The patient states that he is up-to-date with his flu vaccination and pneumonia vaccination. He is ex-smoker. Further work-up done in the ER shows that patient has COPD exacerbation and right-sided pneumonia. He will be admitted for further evaluation and management. Patient was started on IV antibiotics and IV steroids in the emergency room. Principal Diagnosis Pneumonia Discharge Exam Constitutional WD/WN, vitals as above Respiratory normal respiratory effort, lungs clear to auscultation Cardiovascular RRR, no murmur, no edema Gastrointestinal (Abdomen) Inspection/Auscultation: abdomen normal to inspection and normal bowel sounds; abdomen not distended Percussion/Palpation: abdomen soft; abdomen nontender Musculoskeletal no cyanosis or clubbing, extremities motor strength 5/5 Skin no rashes, warm and dry Neurologic moves all extremities and awake Psychiatric A+Ox3, euthymic affect Discharge Data Allergies Allergy/AdvReac Type Severity Reaction Status Date / Time No Known Drug Allergies Allergy Unknown . Verified 01/25/19 15:06 Kerosene Allergy Unknown RASH, Uncoded 01/25/19 15:06 LIGHTHEADED AND SICKNESS PETROLEUM AdvReac Unknown NAUSEA Uncoded 01/25/19 15:06 WITH INHALATION, SKIN BUBBLES WITH CONTACT Ordered Studies 01/25/19 15:03 CT angio chest PE protocol Stat Hospital Course (1) COPD with hypoxia: (2) Hypoxia: (3) Pneumonia: (4) Respiratory distress: (5) COPD exacerbation: CTA showing: - Centrilobular ground glass nodularity with patchy added density most prominently in the right upper lobe is most concerning for an infectious bronchiolitis or other atypical infectious etiology. This could also be inflammatory such as in the setting of smoking-related lung injury with severe respiratory bronchiolitis and/or desquamative interstitial pneumonia. Additional inflammatory etiologies are possible. - No evidence of pulmonary embolus. Patient was started on Rocephin and Zithromax in the ER. Will discharge with 2 more days of prednisone; Augmentin and azithromycin for a total of 5 days of antibiotics. Given IV Solu-Medrol while inpatient DuoNeb breathing treatment per protocol - continue albuterol MDI for home No longer requiring O2, sating mid 90s on RA. Ambulating the halls. Reports feeling back to his baseline. Continue home albuterol and Stiolto (6) Pulmonary nodule: On CTA: Solid 10 mm right lower lobe pulmonary nodule. Follow-up per Fleischner Society 2017 criteria Mediastinal and bilateral hilar lymphadenopathy. This is most likely reactive but should be followed to exclude a neoplastic etiology. Patient reports this is a known nodule. I reviewed patient's CT with pulmonology and they recommend close follow up for nodule and adenopathy Total Time Total Time Spent Total Time Spent (In Minutes): greater than 30 minutes Discharge Plan Discharge Items Patient Disposition: Home - Self-Care Reason For Visit: SOB,COPD Discharge Diagnosis: Pneumonia Activity: Resume your previous activity Non-emergency contact: Primary Care Provider Call non-emergency contact if: you have any medication questions, your symptoms worsen and you have a fever Follow-up/Referrals: Rose Marie Hall PA-C [Primary Care Provider] - Diet: Regular Addtl Attending Provider Instructions: Please follow up with your primary care provider within a week. You should finish your entire course of antibiotics. You should let your doctor know right away if you are becoming more short of breath again or return to the emergency department. You should take a dose of azithromycin and Augmentin this afternoon around 4 or 5 pm. Wait until tomorrow to start prednisone. Your antibiotic regimen will last for five days total and you will take 4 days total of steroids. Please follow up with the pulmonology office in 2 or [address] findings. Pending Studies at Discharge: No Stand-Alone Forms: My [facility] Medications and DC Order Prescriptions: New azithromycin 250 mg tablet 250 mg PO DAILY 4 Days Qty: 4 RF: 0 amoxicillin-pot clavulanate [Augmentin] 875-125 mg tablet 1 tab PO BID Qty: 9 RF: 0 prednisone 20 mg tablet 40 mg PO DAILY Qty: 4 RF: 0 Continued atorvastatin [Lipitor] 80 mg Tablet 40 mg PO DAILY RF: 0 aspirin 325 mg Tablet 325 mg PO QDL RF: 0 gabapentin 100 mg Capsule 100 mg PO TID RF: 0 albuterol sulfate 90 mcg/actuation Hfa Aerosol Inhaler 2 puff INHALATION Q4H PRN (Reason: Shortness Of Breath Or Wheezing) RF: 0 cholecalciferol (vitamin D3) 1,000 unit Capsule 1,000 unit PO DAILY RF: 0 Prilosec OTC 20 mg Tablet,Delayed Release (Dr/Ec) 20 mg PO DAILY PRN (Reason: Acid Reflux) RF: 0 Saw [place] Complex(pumpk-Zn) 219-87-56-15 mg Capsule 5 cap PO DAILY RF: 0 coQ10 (ubiquinol) 100 mg Capsule 100 mg PO BID RF: 0 Stiolto Respimat 2.5-2.5 mcg/actuation Mist 2 puff inhalation DAILY RF: 0 cyanocobalamin (vitamin B-12) 1,000 mcg Capsule 1,000 mcg PO DAILY RF: 0 Discharge Orders: Discharge Order (Routine); Ordered 01/26/19 Ordered By: Jailene Allen Admission Data Admit Date/Time: 01/25/19 17:18 Attending Provider: José Antonio Hester Admit Provider: Margarito Ha Primary Care Provider: Rose Marie Hall
[2019-01-26] MEDS ORDERED: cefTRIAXone SODIUM 2,000 MG in DEXTROSE 5% 50 ML IV SCH (17:00)
[2019-01-26] MEDS ORDERED: AZITHROMYCIN 500 MG in DEXTROSE 5% 250 ML IV SCH (17:00)
== END 2019-01-26 15:47 | disposition home or self-care (01) | DRG 190 ==
LOC: ED 13:30 → SUATTDRO 17:18 → 2S 17:18

== ENCOUNTER 2021-07-02 07:07 | Inpatient (IN) ==
--- NOTE | 2021-06-30 09:35 | Anesthesiology Consultation ---
Date of Service June 30, 2021 Assessment & Plan (1) Encounter for pre-operative examination: - cardiology pre-op clearance 06/10/2021 [place]: "...DSE on 06/08/21 was negative for ischemia at 100% MPHR. Patient is therefore at an acceptable risk to proceed with upcoming surgery..." - cardiology pre-op evaluation 05/27/2021 [place]: "...over the last 6 months, he has noted intermittent pressure in various locations of his torso. He can have pressure in his chest, epigastric region, or his abdomen...pressure occurs after eating certain foods, and he can also have it with exertion. Over the last few years, he has had exertional shortness of breath..short of breath with activities such as ambulating up stairs...can have chest/epigastric/abdominal pressure with the shortness of breath, and he also has left arm tingling as well as the need to urinate. If he over exerts himself, he also has near-syncope. He has not had a syncopal event...uses 4 L supplemental oxygen as needed throughout the day and has been needing it more often recently...uses oxygen and CPAP therapy at night. He states that he his heart rate can be elevated up to 160 bpm at times when checking on his pulse oximeter. This is typically when he is experiencing pressure...has not noted any significant lower extremity edema...denies abnormal bleeding such as melena, hematochezia, or hematuria...past medical history significant for COPD, prior tobacco abuse, sleep apnea, peripheral vascular disease, hyperlipidemia, prediabetes, lumbar disc disease, BPH, and GERD who presents to the clinic for preoperative cardiovascular evaluation prior to laparoscopic cholecystectomy with Dr. Hare...currently experiencing symptoms of exertional shortness of breath and left arm tingling. He can also have chest, epigastric, or abdominal pressure with exertion. He does have cardiovascular risk factors, and it has been over 2 years since his last ischemic evaluation. Will therefore perform a dobutamine stress echo for further evaluation of myocardial ischemia prior to surgery (he does not feel as though he can walk long enough on a treadmill to achieve target heart rate). Pending the results of the stress test, patient is at an acceptable risk to proceed with surgery..." - [facility]2020 E[facility] is stable which is EKG in our records as well. Danna advised patient needs cardiology clearance prior to surgery given coronary calcifications noted on CT in 2019, they are referring him. Surgery to be cancelled for tomorrow. Patient already aware as above. Surgeon's office made aware. -abnormal EKG: Case overall and including abnormal EKG with noted T wave inversion in anterior leads, h/o CAD per [place] 02/2021 records-no hx of cath, inconclusive 2019 stress test and dyspnea with stairs reviewed with Dr. Pack. Patient was contacted and he denied any chest discomfort. Pt inquired if is to stop ASA 325 mg or continue, he states is managed by his PCP. He was advised he needs to discuss this with prescriber and surgeon. Pt verbalized understanding and agreement, denied questions or concerns. Dr. Pack advised can send optimization to PCP to see if they feel any further evaluation or testing is needed prior to surgery.Awaiting PCP response to optimization note. - COVID screening: Per manager assessment on 06/29/2021: Travel screen negative, no known COVID-19 positive contacts or current COVID-19 related symptoms in past 2 weeks. Patient vaccinated. Surgeon arranging preop COVID testing, scheduled 06/30/2021. Awaiting results. Chart Review Chart Review: Acceptable Risk for Surgery and Patient NOT seen in Pre Admission Testing History Surgery Operation Date: 07/02/21 08:55 Proposed Procedures p Laparoscopic Cholecystectomy - Brodie Hare, Surgery has new account number, information transferred to this note. Height/Weight Height: 5 ft 8 in Weight: 101.605 kg Allergies Allergy/AdvReac Type Severity Reaction Status Date / Time atorvastatin [From Lipitor] AdvReac Intermediate Diarrhea Verified 06/29/21 11:54 Kerosene Allergy Unknown RASH, Uncoded 06/29/21 11:54 LIGHTHEADED AND SICKNESS PETROLEUM AdvReac Unknown NAUSEA Uncoded 06/29/21 11:54 WITH INHALATION, SKIN BUBBLES WITH CONTACT Medications Home Medications Medication Instructions Recorded Confirmed Last Taken albuterol sulfate 90 mcg/actuation 2 puff INHALATION Q4H PRN 01/25/19 06/29/21 07/27/20 aerosol inhaler aspirin 325 mg tablet 325 mg PO QDL 01/25/19 06/29/21 07/27/20 cholecalciferol (vitamin D3) 25 1,000 unit PO BID 01/25/19 06/29/21 07/27/20 mcg (1,000 unit) capsule coQ10 (ubiquinol) 100 mg capsule 100 mg PO BID 01/25/19 06/29/21 07/27/20 gabapentin 100 mg capsule 200 mg PO TID 01/25/19 06/29/21 07/27/20 saw palmetto-pumpkin 6 cap PO UD 01/25/19 06/29/21 07/27/20 [id number] 320 mg-40 mg-10 mg-15 mg cap (Saw [place] Complex (pumpkin and Zn)) tiotropium 2.5 mcg-olodaterol 2.5 2 puff INHALATION QAM 01/25/19 06/29/21 07/28/20 mcg/actuation mist for inhalation (Stiolto Respimat) guaifenesin 200 mg tablet 200 mg PO QID PRN 06/02/20 06/29/21 Unknown meloxicam 15 mg tablet 15 mg PO DAILY PRN 06/02/20 06/29/21 07/27/20 18:00 rosuvastatin 10 mg tablet 5 mg PO HS 06/02/20 06/29/21 07/27/20 ascorbic acid (vitamin C) 500 mg 500 mg PO QAM 04/29/21 06/29/21 Unknown tablet (Vitamin C) multivitamin 1 tab PO QAM 04/29/21 06/29/21 Unknown omeprazole 20 mg tablet,delayed 20 mg PO DAILY PRN 04/29/21 06/29/21 Unknown release Past Medical History Medical History BPH (benign prostatic hyperplasia) pt denies Cholelithiasis Chronic back pain Colonic polyp COPD (chronic obstructive pulmonary disease) Coronary artery disease [facility] Degenerative disc disease Fatty liver GERD (gastroesophageal reflux disease) mild History of peptic ulcer Hyperlipidemia Kidney stones no surgery Lumbar spinal stenosis On home oxygen therapy uses oxygen prn SOB Osteoarthritis Pancreatic cyst "fatty deposits" Prediabetes PVD (peripheral vascular disease) MRI abdomen [facility] shows blockage in "leg" unsure of other details. Sleep apnea cpap with 4lpm of oxygen Past Family History Family History Sister Cancer Mother Hypertension Diabetes Father Diabetes Stroke Past Surgical History Surgical History H/O cataract removal with insertion of prosthetic lens bilateral H/O colonoscopy Social History Smoking Status: Former smoker tobacco type: cigarettes Do You Dip or Chew Tobacco: No Smoking End Date: 2019 Hx Alcohol Use: No Hx Substance Use: No substance use type: does not use Lab Results Anesthesia Preop Results Results Anesthesia Widget: WBC 7.21 K/uL (4.8-10.8) 06/18/21 Hgb 16.7 g/dL (14.0-18.0) 06/18/21 Hct 47.5 % (42-52) 06/18/21 Plt 173 K/uL (130-400) 06/18/21 Na 138 mmol/L (136-145) 06/18/21 K 4.0 mmol/L (3.5-5.1) 06/18/21 Cl 108 mmol/L (98-107) H 06/18/21 CO2 24 mmol/L (21-32) 06/18/21 BUN 10 mg/dl (6-23) 06/18/21 Creat 1.06 mg/dl (0.6-1.4) 06/18/21 Glucose Level 99 mg/dl (70-99(Fasting)) 06/18/21 Testing Electrocardiogram Date: 07/28/20 Normal sinus rhythm, rate 73 bpm Rightward axis Nonspecific T wave abnormality T wave inversion now evident in anterior leads Echocardiogram Date: 05/07/21 EF 55-60% Normal LV systolic function, wall thickness and cavity size No regional wall motion abnormalities No significant valvular pathology Stress Test Date: 06/08/21 MPHR 100% Negative for inducible ischemia Normal augmentation of all segments without development of regional wall motion abnormalities Normal LV function and wall motion Other Testing CT chest without contrast 05/15/2020 Lungs: stable 10 mm partially calcified right lower lobe lung nodule. emphysema. stable left lingular curvilinear atelectasis and/or scarring. Stable bilateral septal thickening. Airways: minimal retained endobronchial secretions. Minimal bilateral bronchial wall thickening. Lymphatic: stable mediastinal lymphadenopathy. For example, a customer field representative prevascular lymph node measures 2.1 x 1.2 cm, stable. Slightly more posteriorly, prevascular lymph node measures 2.3 x 0.9 cm, stable. Precarinal lymph node measures 2.5 x 1.4 cm, stable. Vasculature: atherosclerotic vascular calcifications Upper abdomen: hepatic steatosis
[~2021-07-02 07:07] MED LIST changes: -500ML BSS 0.3ML EPI 1:1000PF IRRIG ONE; -ACETAMINOPHEN 325 MG TAB PO PRN; -AMVISC PLUS 0.8ML SYRINGE INT OCU ONE; -ASPECOTC PO; -ATROPINE SULFATE 0.4 MG/ML 1 ML VIAL IV PRN; -BSS FLUSH ONE; -BUPR-79 PO; -CHOL100027 PO; -COEN1TAB3 PO; -CYAN10004 PO; -CYCLOPENTOLATE HCL 1% OP SOLN PER DROP CHARGE OPL SCH; -ENDOCOAT 0.85ML SYRINGE INT OCU ONE; -EpHEDrine SULFATE INJ 50 MG/ML AMP IV PRN; -EpINEphrine INJ 1MG/ML AMP 1 MG/ML AMP ONE; -GABA-112 PO; -LACTATED RINGER'S 1000ML 500 ML IV SCH; -LIDOCAINE 4% OP SOLN DROP CHARGE ONE; -LIDOCAINE 4% OP SOLN DROP CHARGE OPL SCH; -LIDOCAINE HCL 1% MPF 2 ML VIAL ONE; +LR 15ML/HR IV SCH; -MIDAZOLAM HCL 1 MG/ML 2ML VIAL ONE; -MIX: 4ML BSS 1ML EPI 1:1000 PF TOP ONE; -MOXIFLOXACIN OPH SOLN PER DROP CHARGE ONE; -MOXIFLOXACIN OPH SOLN PER DROP CHARGE OPL SCH; -MULT-839 PO; -PHENYLEPHRINE HCL 2.5% OP SOLN PER DROP CHARGE OPL SCH; -POVIDONE-IODINE OP SOLN 30 ML BTL ONE; -PRLSR20 PO; -PROPARACAINE 0.5% OP SOLN PER DROP CHARGE OPL SCH; -RANI150T85 PO; -SAW450CA5 PO; -SILD100T PO; -SIMV20TA2 PO; -TOBRAMYCIN/DEXAMETHASONE OPH OINT PER APPLN CHARGE ONE; -TROPICAMIDE 1% OP SOLN PER DROP CHARGE OPL SCH; +ceFAZolin 2000MG 2,000 MG/15 ML SYR IV SCH
--- NOTE | 2021-07-02 07:15 | History & Physical Report ---
Date of Service July 02, 2021 Assessment & Plan (1) Cholelithiasis: Plan: We discussed his options and the risks associated with today's procedure. We have also given him some literature. I have answered all of his questions. We will proceed today with laparoscopic cholecystectomy. Cholelithiasis location: gallbladder Cholecystitis presence: without cholecystitis Biliary obstruction: without biliary obstruction Qualified Code(s): K80.20 - Calculus of gallbladder without cholecystitis without obstruction (2) COPD (chronic obstructive pulmonary disease): (3) Heart disease: (4) Borderline diabetes: (5) Obesity: (6) COPD with hypoxia: History of Present Illness Primary Care Provider: Rose Marie Hogan PA-C Az is here today to have his gallbladder removed. He has gallstones and multiple symptoms that would correlate with them. Since I seen him last he did undergo a cardiac stress test which he passed. Allergies Allergy/AdvReac Type Severity Reaction Status Date / Time atorvastatin [From Lipitor] AdvReac Intermediate Diarrhea Verified 06/29/21 11:54 Kerosene Allergy Unknown RASH, Uncoded 06/29/21 11:54 LIGHTHEADED AND SICKNESS PETROLEUM AdvReac Unknown NAUSEA Uncoded 06/29/21 11:54 WITH INHALATION, SKIN BUBBLES WITH CONTACT Home Medications Medication Instructions Recorded Confirmed Type albuterol sulfate 90 mcg/actuation 2 puff INHALATION Q4H PRN 01/25/19 06/29/21 History aerosol inhaler aspirin 325 mg tablet 325 mg PO QDL 01/25/19 06/29/21 History cholecalciferol (vitamin D3) 25 1,000 unit PO BID 01/25/19 06/29/21 History mcg (1,000 unit) capsule coQ10 (ubiquinol) 100 mg capsule 100 mg PO BID 01/25/19 06/29/21 History gabapentin 100 mg capsule 200 mg PO TID 01/25/19 06/29/21 History saw palmetto-pumpkin 6 cap PO UD 01/25/19 06/29/21 History [id number] 320 mg-40 mg-10 mg-15 mg cap (Saw [place] Complex (pumpkin and Zn)) tiotropium 2.5 mcg-olodaterol 2.5 2 puff INHALATION QAM 01/25/19 06/29/21 History mcg/actuation mist for inhalation (Stiolto Respimat) guaifenesin 200 mg tablet 200 mg PO QID PRN 06/02/20 06/29/21 History meloxicam 15 mg tablet 15 mg PO DAILY PRN 06/02/20 06/29/21 History rosuvastatin 10 mg tablet 5 mg PO HS 06/02/20 06/29/21 History ascorbic acid (vitamin C) 500 mg 500 mg PO QAM 04/29/21 06/29/21 History tablet (Vitamin C) multivitamin 1 tab PO QAM 04/29/21 06/29/21 History omeprazole 20 mg tablet,delayed 20 mg PO DAILY PRN 04/29/21 06/29/21 History release Past Med/Surg History Medical History (Updated 07/01/21 @ 18:35 by Az Hudson MD) BPH (benign prostatic hyperplasia) pt denies Cholelithiasis Chronic back pain Colonic polyp COPD (chronic obstructive pulmonary disease) Coronary artery disease per 02/2021 [place] office note Degenerative disc disease Fatty liver GERD (gastroesophageal reflux disease) mild History of peptic ulcer Hyperlipidemia Kidney stones no surgery Lumbar spinal stenosis Obesity On home oxygen therapy uses oxygen prn SOB Osteoarthritis Pancreatic cyst "fatty deposits" Prediabetes PVD (peripheral vascular disease) MRI abdomen [facility] shows blockage in "leg" unsure of other details. Sleep apnea cpap with 4lpm of oxygen Surgical History H/O cataract removal with insertion of prosthetic lens bilateral H/O colonoscopy Family History Sister Cancer Mother Hypertension Diabetes Father Diabetes Stroke Social History Smoking Status: Former smoker Tobacco Type: Cigarettes Smoking End Date: 2019; Second Hand Exposure: No; Do You Dip or Chew Tobacco: No; Tobacco Cessation Education Requested by Patient: No Hx Alcohol Use: No Hx Substance Use: No Preferred Language: Albanian Communication Ability: Effective Recycling Tech Required: No Beliefs That Will Affect Care: None marital status: Current Living Situation: Spouse current occupational status: retired How many Children do You have: 3 Other Information That Helps Us Care for You: No Feels Safe at Home: Yes Safety Concerns: Feels Safe At This Time Assistive Devices: CPAP, Denture - Upper, Denture - Lower, Glasses and Oxygen - at Night Review of Systems All systems reviewed & are unremarkable except as noted in HPI & below Physical Exam Constitutional: WD/WN, vitals as above no acute distress and not ill appearing Eyes: PERRL, conjunctivae normal, anicteric sclerae EOM intact bilaterally ENMT: external ear and nose normal, oropharynx normal Ears: no hearing impairment Neck: trachea midline, no thyromegaly Respiratory: normal respiratory effort; no respiratory distress and does not use accessory muscles Cardiovascular: Rate/Rhythm: regular rate and regular rhythm Gastrointestinal (Abdomen): normal bowel sounds, soft, nontender, no hepatosplenomegaly Skin: no rashes, warm and dry Psychiatric: Orientation: alert, oriented x 3 and cooperative
[2021-07-02] MEDS ORDERED: ONDANSETRON INJ 2 MG/ML 2 ML VIAL IV PRN ×2 (07:34→09:39)
[2021-07-02] MEDS ORDERED: PHENYLEPHRINE 100MCG/ML 5ML SYR IV PRN (07:34)
[2021-07-02] MEDS ORDERED: MEPERIDINE HCL 25 MG/ML CARP/VIAL IV PRN (07:34)
[2021-07-02] MEDS ORDERED: ATROPINE SULFATE 0.1 MG/ML 10ML SYR IV PRN (07:34)
[2021-07-02] MEDS ORDERED: LABETALOL HCL IV 5 MG/ML 20ML IV PRN (07:34)
[2021-07-02] MEDS ORDERED: HYDROmorphone INJ 1 MG/ML SYRINGE IV PRN (07:34)
[2021-07-02] MEDS ORDERED: ePHEDrine sulfate 50 MG/ML AMP IV PRN (07:34)
[2021-07-02] MEDS ORDERED: PROPOFOL IV EMULSION 10 MG/ML 20 ML VIAL IV ONE (07:56)
[2021-07-02] MEDS ORDERED: fentaNYL citrate 100 MCG/2 ML VIAL ONE (07:56)
[2021-07-02] MEDS ORDERED: NEOSTIGMINE METHYLSULFATE 1 MG/ML 10ML VIAL ONE (07:56)
[2021-07-02] MEDS ORDERED: LIDOCAINE 2% 2 ML VIAL/AMP(20MG/ML) INFIL ONE (07:56)
[2021-07-02] MEDS ORDERED: DEXAMETHASONE SOD INJ 4 MG/ML VIAL ONE (07:56)
[2021-07-02] MEDS ORDERED: MIDAZOLAM HCL 1 MG/ML 2ML VIAL ONE (07:56)
[2021-07-02] MEDS ORDERED: GLYCOPYRROLATE 0.2 MG/ML VIAL ONE (07:56)
[2021-07-02] MEDS ORDERED: ONDANSETRON INJ 2 MG/ML 2 ML VIAL ONE (07:56)
[2021-07-02] MEDS ORDERED: ROCURONIUM BROMIDE 10 MG/ML 5 ML VIAL IV ONE (07:56)
[2021-07-02] MEDS ORDERED: BUPIVACAINE 0.5 % 5 MG/1 ML MPF 30ML VIAL ONE (08:38)
[2021-07-02] MEDS ORDERED: EPINEPHrine INJ 1 MG/ML AMP ONE (08:38)
[2021-07-02] MEDS ORDERED: MoRPHine SULFATE 2 MG/ML CARP IV PRN (09:39)
[2021-07-02] MEDS ORDERED: MoRPHine SULFATE 4 MG/ML 1 ML CARP\\VIAL IV PRN (09:39)
--- NOTE | 2021-07-02 09:42 | Operative Report ---
PG Post Operative Report Pre & Post Diagnosis Operation Date: 07/02/21 08:55 Pre-Op Diagnosis: Cholelithiasis Post-Op Diagnosis: Cholelithiasis I identified the patient and participated in the time-out.: Yes Procedure Operation Date: 07/02/21 08:55 Actual Procedures p Laparoscopic Cholecystectomy(Not Applicable) - Brodie Hare DO Surgeon Brodie Hare DO [place] Technician francia Jones Estimated Blood Loss 5 Findings Consistent with Post-Op Diagnosis Specimens gallbladder Description of Procedure After informed consent was obtained the patient was taken to the operating room and placed in the supine position. After successful intubation the abdomen was sterilely prepped and draped in usual fashion. A periumbilical incision was made with an 11 blade scalpel and carried down through the soft tissue using electrocautery. The anterior rectus fascia was opened using electrocautery and 2 #0 Vicryl stay sutures were placed. The peritoneum was elevated with hemostats and incised under direct vision using Metzenbaum scissors. A finger sweep was performed and a 12 mm Pavon trocar was placed. The abdomen was insufflated to 18 mmHg. The laparoscope was inserted and the abdomen was examined in 360. No gross abnormalities were identified. A subxiphoid 5 mm port and 2 right upper quadrant 5 mm ports were placed under direct vision. The patient was placed in a reverse Trendelenburg position and slightly airplaned to the left. The gallbladder was grasped and elevated superiorly and laterally. A [place] dissector was used to take down adhesions around the neck of the gallbladder. The cystic duct was identified and skeletonized. It was clipped twice proximally and once distally and transected using a laparoscopic scissor. In similar fashion the cystic artery was identified and skeletonized clipped and divided. There was a small posterior arterial branch as well which was clipped and divided. The gallbladder was removed from the gallbladder fossa with electrocautery. It was placed into an Endo Catch bag. Thorough irrigation was performed. At the end of the procedure there was adequate hemostasis and no evidence of any bile leaks. A final look around the abdomen showed no other abnormalities. The gallbladder and trochars were all removed and the abdomen was desufflated. The fascia of the camera port was closed using 0 Vicryl in a [id number] fashion. All the wounds were irrigated and closed using 4-0 Monocryl. Marcaine was injected around them for postoperative analgesia and skin glue used as a dressing. The patient was awaken extubated and transferred to recovery in stable condition. My physician's roofer assistant was present throughout the entire case... helped with prepping the patient. With exposure for trocar placement, as well as retracted the gallbladder throughout the case and also assisted with wound closure and dressing placement. I attest to the content of the Intraoperative Record and any orders documented therein. Any exceptions are noted below.
[2021-07-02] MEDS ORDERED: SUGAMMADEX SODIUM 200 MG/2 ML VIAL IV ONE (09:43)
[2021-07-02] MEDS ORDERED: SODIUM CHLORIDE 0.9% 1000ML 1,000 ML IV SCH (09:45)
[2021-07-02] MEDS: fentaNYL citrate 100 MCG/2 ML VIAL IV PRN ×4 (10:12→10:37)
[2021-07-02] MEDS ORDERED: ALBUT/IPRATROP 3MG/0.5MG NEB 3 ML VIAL NEB STA (10:27)
[2021-07-02] MEDS ORDERED: ACETAMINOPHEN 1000 MG/100 ML IV IV ONE ×2 (11:57→12:00)
--- NOTE | 2021-07-02 12:05 | XRay Report ---
XR chest 1V portable CLINICAL HISTORY: low oxygen saturation COMPARISON STUDY: Chest radiograph and chest CT January 25, 2019. FINDINGS: Lung volumes are mildly diminished. Bibasilar opacities are present. No pneumothorax or ple ural effusion is noted. There is no evidence for pulmonary edema. Cardiac size is likely within schuyler l limits on AP projection. Emphysema is present. IMPRESSION: 1. Mildly diminished lung volumes with bibasilar opacities. These opacities favor atelectasis althoug h consolidation could appear similar. 2. Emphysema. ACT 112: Negative or not required by law. Electronically signed by: Daniel Parker M.D. 07/02/2021 12:02 PM
--- NOTE | 2021-07-02 13:26 | History & Physical Report ---
Date of Service July 02, 2021 Assessment & Plan (1) Hypoxia: Plan: #Acute on chronic hypoxia Patient has history of COPD oxygen dependent using 2 L oxygen per minute Postoperatively patient has persistent hypoxia Chest x-ray is clear There is no wheezing on exam Plan: D-dimer BMP DuoNeb as needed for wheezing Prednisone 40 mg daily Continue BiPAP with a setting of 8/12 try to wean him off the BiPAP if IT IKS doable today otherwise patient will nocturnal BiPAP N.p.o. for now (2) Hyperlipidemia: Plan: Hold statin for now (3) GERD (gastroesophageal reflux disease): Plan: Continue PPI (4) Cholecystectomy planned: Plan: Status post cholecystectomy on 07/02 Plan: DVT prophylaxis Lovenox 40 mg subcutaneously Admission and Anticipated Discharge Date Admission Date: Bleeding 24 to 48 hours History of Present Illness Chief Complaint: Hypoxic respiratory failure acute on chronic Primary Care Provider: Rose Marie Hogan PA-C The patient is 65-year-old male with a past medical history significant for COPD, on home oxygen 4 L at night sometimes also using the daytime, history of obesity admitted to this facility for elective laparoscopic cholecystectomy, postoperatively patient developed hypoxia, patient was initially started on #3 facemask which will increase his sats to high 80s and subsequently patient was started BiPAP with a setting of 12/8 and currently the saturation low 90s. On exam patient does not have any wheezing. Vitals are stable, chest x-ray unremarkable. Allergies Allergy/AdvReac Type Severity Reaction Status Date / Time atorvastatin [From Lipitor] AdvReac Intermediate Diarrhea Verified 07/02/21 07:31 Kerosene Allergy Unknown RASH, Uncoded 07/02/21 07:31 LIGHTHEADED AND SICKNESS PETROLEUM AdvReac Unknown NAUSEA Uncoded 07/02/21 07:31 WITH INHALATION, SKIN BUBBLES WITH CONTACT Home Medications Medication Instructions Recorded Confirmed Type albuterol sulfate 90 mcg/actuation 2 puff INHALATION Q4H PRN 01/25/19 07/02/21 History aerosol inhaler aspirin 325 mg tablet 325 mg PO QDL 01/25/19 07/02/21 History cholecalciferol (vitamin D3) 25 1,000 unit PO BID 01/25/19 07/02/21 History mcg (1,000 unit) capsule coQ10 (ubiquinol) 100 mg capsule 100 mg PO BID 01/25/19 07/02/21 History gabapentin 100 mg capsule 200 mg PO TID 01/25/19 07/02/21 History saw palmetto-pumpkin 6 cap PO UD 01/25/19 07/02/21 History [id number] 320 mg-40 mg-10 mg-15 mg cap (Saw [place] Complex (pumpkin and Zn)) tiotropium 2.5 mcg-olodaterol 2.5 2 puff INHALATION QAM 01/25/19 07/02/21 History mcg/actuation mist for inhalation (Stiolto Respimat) guaifenesin 200 mg tablet 200 mg PO QID PRN 06/02/20 07/02/21 History meloxicam 15 mg tablet 15 mg PO DAILY PRN 06/02/20 07/02/21 History rosuvastatin 10 mg tablet 5 mg PO HS 06/02/20 07/02/21 History ascorbic acid (vitamin C) 500 mg 500 mg PO QAM 04/29/21 07/02/21 History tablet (Vitamin C) multivitamin 1 tab PO QAM 04/29/21 07/02/21 History omeprazole 20 mg tablet,delayed 20 mg PO DAILY PRN 04/29/21 07/02/21 History release hydrocodone 5 mg-acetaminophen 325 1 - 2 tab PO .q4h- q6h PRN #15 tab 07/02/21 Rx mg tablet Past Med/Surg History Medical History (Updated 07/02/21 @ 13:29 by Jeovany Morfin MD) BPH (benign prostatic hyperplasia) pt denies Cholelithiasis Chronic back pain Colonic polyp COPD (chronic obstructive pulmonary disease) Coron[facility] Degenerative disc disease Fatty liver GERD (gastroesophageal reflux disease) mild History of peptic ulcer Hyperlipidemia Kidney stones no surgery Lumbar spinal stenosis Obesity On home oxygen therapy uses oxygen prn SOB Osteoarthritis Pancreatic cyst "fatty deposits" Prediabetes PVD (peripheral vascular disease) MRI abdomen [facility] shows blockage in "leg" unsure of other details. Sleep apnea cpap with 4lpm of oxygen Surgical History H/O cataract removal with insertion of prosthetic lens bilateral H/O colonoscopy Family History Sister Cancer Mother Hypertension Diabetes Father Diabetes Stroke Social History Smoking Status: Former smoker Tobacco Type: Cigarettes Smoking End Date: 2019; Second Hand Exposure: No; Do You Dip or Chew Tobacco: No; Tobacco Cessation Education Requested by Patient: No Hx Alcohol Use: No Hx Substance Use: No Preferred Language: Frisian Communication Ability: Effective Automotive Service Advisor Required: No Beliefs That Will Affect Care: None marital status: Current Living Situation: Spouse current occupational status: retired How many Children do You have: 3 Other Information That Helps Us Care for You: No Feels Safe at Home: Yes Safety Concerns: Feels Safe At This Time Assistive Devices: CPAP, Denture - Upper, Denture - Lower, Glasses and Oxygen - at Night Review of Systems Review of Systems: All 12 organs were reviewed unremarkable unless mentioned above in HPI Constitutional: no fever, no body aches and no malaise Respiratory: + cough and + chest congestion Cardiovascular: as per Subjective / HPI; no chest pain and no chest pain with activity Gastrointestinal: no abdominal pain and no vomiting Physical Exam Physical Exam: General: Alert oriented x3, well-nourished Neck: No lymphadenopathy, supple Respiratory: Lungs are clear to auscultation no chest abnormality Cardiovascular: Regular rate and rhythm no murmur no gallop vegetation Abdomen: Soft bowel sounds active Extremities: No edema no tenderness Skin: No jaundice no rash Neurology: Alert oriented x3 no acute distress moves all extremities Psychiatry mood and affect appropriate Results & Data Results & Data ([facility]) Vital Signs (Past 12 Hours) Vital Signs Temp Pulse Pulse Resp BP BP Pulse Ox 07/02/21 13:15 92 H 20 107/75 91 07/02/21 13:05 90 19 117/72 91 07/02/21 12:55 98 H 24 109/55 L 91 07/02/21 12:45 91 H 17 133/73 90 07/02/21 12:35 80 18 114/72 90 07/02/21 12:25 36.2 C L 85 18 123/74 91 07/02/21 12:15 71 18 112/73 90 07/02/21 12:05 75 21 120/69 90 07/02/21 11:55 98 H 23 114/77 82 L 07/02/21 11:45 101 H 20 110/71 80 L 07/02/21 11:35 36.7 C 100 H 16 123/69 82 L 07/02/21 11:25 77 18 123/64 91 07/02/21 11:15 74 18 119/65 90 07/02/21 11:05 69 17 110/70 90 07/02/21 10:55 83 18 133/85 92 07/02/21 10:45 89 19 108/66 82 L 07/02/21 10:35 77 20 115/69 85 L 07/02/21 10:33 70 14 88 L 07/02/21 10:25 91 H 20 113/59 L 82 L 07/02/21 10:15 90 20 102/68 83 L 07/02/21 10:05 92 H 21 116/68 87 L 07/02/21 09:55 36.4 C L 100 H 31 H 116/74 89 L 07/02/21 07:42 36.9 C 69 22 114/60 91 Code Status & VTE Plan VTE Prophylaxis Plan VTE Prophylaxis will be ordered: Yes PG Care Time/CCT Total # of Minutes Spent Total Time Spent with Patient: Total time spent is greater than 50% in coordination of care (as documented) at patient's floor/unit and/or counseling patient: Coding Level of Care Code 02821 Initial Inpt Care Lvl 2 Diagnoses Hypoxia R09.02 Hyperlipidemia E78.5 GERD (gastroesophageal reflux disease) K21.9 Cholecystectomy planned
[2021-07-02] MEDS ORDERED: fentaNYL citrate 100 MCG/2 ML VIAL IV PRN (14:02)
[2021-07-02] MEDS ORDERED: METOPROLOL TARTRATE 1 MG/ML VIAL IV STA (14:10)
[2021-07-02] MEDS ORDERED: METOPROLOL TARTRATE 1 MG/ML VIAL IV ONE (14:12)
--- NOTE | 2021-07-02 14:32 | Anesthesiology Progress Note ---
Date of Service July 02, 2021 Anesthesia Post Procedure Vital Signs Vital Signs: Temp Pulse Pulse Pulse Resp BP BP 07/02/21 14:15 130 H 122/80 07/02/21 13:55 139 H 23 07/02/21 13:40 132 H 21 07/02/21 13:25 36.7 C 88 19 07/02/21 13:15 92 H 20 07/02/21 13:05 90 19 07/02/21 12:55 98 H 24 07/02/21 12:45 91 H 17 07/02/21 12:35 80 18 07/02/21 12:25 36.2 C L 85 18 07/02/21 12:15 71 18 07/02/21 12:05 75 21 07/02/21 11:55 98 H 23 07/02/21 11:45 101 H 20 07/02/21 11:35 36.7 C 100 H 16 07/02/21 11:25 77 18 07/02/21 11:15 74 18 07/02/21 11:05 69 17 07/02/21 10:55 83 18 07/02/21 10:45 89 19 07/02/21 10:35 77 20 07/02/21 10:33 70 14 07/02/21 10:25 91 H 20 07/02/21 10:15 90 20 07/02/21 10:05 92 H 21 07/02/21 09:55 36.4 C L 100 H 31 H 07/02/21 07:42 36.9 C 69 22 114/60 BP Pulse Ox 07/02/21 14:15 07/02/21 13:55 105/64 92 07/02/21 13:40 114/86 91 07/02/21 13:25 122/69 91 07/02/21 13:15 107/75 91 07/02/21 13:05 117/72 91 07/02/21 12:55 109/55 L 91 07/02/21 12:45 133/73 90 07/02/21 12:35 114/72 90 07/02/21 12:25 123/74 91 07/02/21 12:15 112/73 90 07/02/21 12:05 120/69 90 07/02/21 11:55 114/77 82 L 07/02/21 11:45 110/71 80 L 07/02/21 11:35 123/69 82 L 07/02/21 11:25 123/64 91 07/02/21 11:15 119/65 90 07/02/21 11:05 110/70 90 07/02/21 10:55 133/85 92 07/02/21 10:45 108/66 82 L 07/02/21 10:35 115/69 85 L 07/02/21 10:33 88 L 07/02/21 10:25 113/59 L 82 L 07/02/21 10:15 102/68 83 L 07/02/21 10:05 116/68 87 L 07/02/21 09:55 116/74 89 L 07/02/21 07:42 91 Pain Intensity Abdomen: Pain Intensity: 5 Transfer of Care Handoff Completed per policy Notes Mental Status: alert / awake / arousable and participated in evaluation Patient Amnestic to Procedure: Yes Nausea / Vomiting: adequately controlled Pain: adequately controlled Airway Patency, RR, SpO2: see Notes below BP & HR: see Notes below Hydration State: stable & adequate Anesthetic Complications: no major complications apparent and Pt Satisfied with anesthetic care Notes: I started care of this patient while he was in recovery after obtaining sign out from his primary anesthesiologist. In brief, patient has what appears to be poorly controlled COPD. Upon arrival, his SpO2 was in high 80's on RA. He underwent a successful lap kiran but had SpO2 readings in low 80's in recovery despite neb treatment, supplemental oxygen, incentive spirometry and brief period of BiPAP. CXR show emphysema but not acute/concerning conditions. After speaking with patient and attending surgeon, felt it was best to admit this patient for overnight observation. Hospitalist service was consulted. Patient was placed back on BiPAP and saturations improved to low 90's. While awaiting his room assignment, patient's HR noted to increase to 130's. ECG was done and showed SVT. 2.5mg IV metoprolol push was done and patient converted back to NSR with HR in 70's-80's. He denied any CP/SOB/palpitations. BP stable. Hospitalist attending was notified.
[2021-07-02] MEDS ORDERED: MAGNESIUM HYDROXIDE SUSP 30 ML UDC PO PRN (15:23)
[2021-07-02] MEDS ORDERED: ACETAMINOPHEN 325 MG TAB PO PRN (15:23)
[2021-07-02] MEDS ORDERED: ALUMINUM/MAGNESIUM SUSP 30 ML UDC PO PRN (15:23)
[2021-07-02] MEDS ORDERED: ALBUT/IPRATROP 3MG/0.5MG NEB 3 ML VIAL NEB PRN (15:23)
[2021-07-02] MEDS ORDERED: ZOLPIDEM TARTRATE 5 MG TAB PO PRN (15:23)
[2021-07-02] MEDS ORDERED: PANTOprazole 40 MG TAB PO PRN (15:33)
[2021-07-02] MEDS: D5W AND NSS 1,000 ML IV SCH (15:43)
[2021-07-02 16:10] LABS: D Dimer 1590 ug/L FEU (0-500)
[2021-07-02] MEDS ORDERED: METOPROLOL TARTRATE 1 MG/ML VIAL IV PRN (16:25)
[2021-07-02] MEDS: predniSONE 20 MG TAB PO SCH (16:33)
[2021-07-02] MEDS: ENOXAPARIN INJ 40 MG/0.4 ML SYR SQ SCH (16:34)
[2021-07-02 16:51] LABS: BUN Creatinine Ratio 8.5 (10-20); Calcium 8.8 mg/dl (8.5-10.1); Creatinine Clr Calc Pharmacy 78.1 ml/min; Est GFR (African American) 83.8 ml/min; Est GFR (Non-African American) 72.3 ml/min; Potassium 4.5 mmol/L (3.5-5.1)
--- NOTE | 2021-07-02 17:05 | Electrocardiogram Report ---
Test Reason : Blood Pressure : / mmHG Vent. Rate : 133 BPM Atrial Rate : 027 BPM P-R Int : 000 ms QRS Dur : 088 ms QT Int : 316 ms P-R-T Axes : 000 102 006 degrees QTc Int : 470 ms Supraventricular tachycardia Rightward axis Borderline ECG When compared with ECG of 28-JUL-2020 07:32, Vent. rate has increased BY 60 BPM Nonspecific T wave abnormality now evident in Inferior leads T wave inversion no longer evident in Anterior leads Confirmed by Donato Diaz ([id number]) on 07/02/2021 5:04:43 PM Referred By: Brodie Hare Confirmed By:Scotty Diaz
[2021-07-02] MEDS ORDERED: CHLORASEPTIC 1.4% SOLN 180 ML BTL MT PRN (17:37)
[2021-07-02] MEDS ORDERED: OPTIRAY 320 125ml IV ONE (18:12)
[2021-07-02] MEDS: HYDROCODONE/ACETAMOPHEN 5/325MG TAB PO PRN (18:30)
--- NOTE | 2021-07-02 19:36 | CT Scan Report ---
CT angio chest PE protocol CLINICAL HISTORY: Shortness of breath. COMPARISON STUDY: 01/25/2019 and portable chest from 07/02/2021 CT DOSE: 753.64 mGy.cm TECHNIQUE: CT Angio of the chest was performed.followed by image post processing with coronal, and s agittal MIP reformats. Contrast Volume: Optiray 320, 120 ml FINDINGS: Vasculature: There is homogeneous perfusion of the pulmonary vasculature bilaterally. No intraluminal filling defects or evidence for pulmonary embolus is seen. Airway: The airway is clear. No endobronchial lesion is identified. Lungs: Mild to moderate centrilobular emphysematous changes are again seen throughout both lungs. The re is asymmetric elevation right hemidiaphragm with right basilar atelectasis. There is a stable fat- containing nodular density at the right lung base as seen on image 104. The lungs are otherwise clear of acute alveolar opacities, air bronchograms or pathologic pulmonary nodules. Pleura: There is no evidence for pleural effusion. There is no evidence for pneumothorax. Mediastinum: There is interval decrease in size of previously identified mediastinal lymph nodes. Pre vascular lymph nodes are stable in size. No new pathologic adenopathy is seen. The heart size is with in normal limits. The thoracic aorta is within normal limits. There is no evidence for pericardial ef fusion. Upper abdomen:The adrenal glands are normal bilaterally. There is hepatomegaly with fatty infiltratio n of liver. Osseous structures: There is no acute osseous pathology. Impression: 1. No CTA evidence for pulmonary embolus. 2. No acute chest disease. 3. Centrilobular emphysematous changes are again seen. 4. Elevation right hemidiaphragm with right basilar atelectasis. 5. Stable partially calcified right lower lobe pulmonary nodule. 6. Stable to decreased mediastinal and hilar adenopathy. 7. Additional nonacute findings are delineated above. ACT 112: Negative or not required by law. Electronically signed by: Steven Vilchis M.D. 07/02/2021 7:33 PM
[2021-07-03] MEDS: D5W AND NSS 1,000 ML IV SCH (04:41)
[2021-07-03 07:44] LABS: Hematocrit (blood only) 46.8 % (42-52); Mean Corpuscular Hemoglobin 30.1 pg (25-34); Mean Corpuscular Hgb Conc 34.2 g/dL (32-36); Mean Platelet Volume 9.3 fL (7.4-10.4); Platelet Count 167 K/uL (130-400); RDW Coefficient of Variation 15.6 % (11.5-14.5); RDW Standard Deviation 49.8 fL (36.4-46.3); Red Blood Count 5.32 M/uL (4.7-6.1); White Blood Count 8.83 K/uL (4.8-10.8)
[2021-07-03] MEDS: ASCORBIC ACID 500 MG TAB PO SCH (07:50)
[2021-07-03] MEDS: predniSONE 20 MG TAB PO SCH (07:50)
[2021-07-03] MEDS: UMECLIDINIUM/VILANTEROL 62.5/25MCG 7 PUFFS/INHALER INH SCH (07:51)
[2021-07-03] MEDS: HYDROCODONE/ACETAMOPHEN 5/325MG TAB PO PRN ×2 (07:51→17:43)
[2021-07-03 08:14] LABS: Anion Gap 7 (3-11); Blood Urea Nitrogen 12 mg/dl (6-23); Calcium 8.8 mg/dl (8.5-10.1); Carbon Dioxide 23 mmol/L (21-32); Chloride 107 mmol/L (98-107); Creatinine Clr Calc Pharmacy 82.8 ml/min; Est GFR (African American) 89.9 ml/min; Est GFR (Non-African American) 77.5 ml/min; Glucose 147 mg/dl (70-99(Fasting)); Sodium 137 mmol/L (136-145)
--- NOTE | 2021-07-03 10:09 | Surgery Progress Note ---
Date of Service July 03, 2021 Assessment & Plan (1) Cholecystectomy planned: Plan: POD#1 lap kiran Post op pt had elevated O2 requirement compared to his baseline and was recommended he be admitted for ongoing monitoring/evaluation. CT Chest obtained showed no PE's. Today patient having some expected post surgical discomfort. No n/v. May have regular diet, d/c IVF Appreciate hospitalist help with managing O2 needs May dispo from surgical standpoint when cleared by medicine F/u in clinic with Dr. Hare in 1-2 weeks Admission and Anticipated Discharge Date Admission Date: July 02, 2021 Subjective Patient having a little abdominal discomfort, expected post surgically. No n/v. Not much appetite. No SOB/CP. On O2. Physical Exam Gastrointestinal (Abdomen): Inspection/Auscultation: + abdomen distended and + abdominal surgical incision (c/d/i) Percussion/Palpation: + abdomen tender (expected steven-incisional discomfort) and abdomen soft Results & Data ([facility]) Vital Signs (Past 12 Hours) Vital Signs Temp Pulse Pulse Resp BP Pulse Ox 07/03/21 09:53 61 07/03/21 07:55 36.7 C 79 20 121/71 91 07/03/21 06:55 65 20 94 07/03/21 04:00 35.8 C L 72 18 115/73 91 07/03/21 03:33 68 20 93 07/02/21 23:20 66 07/02/21 23:00 36.6 C 71 18 105/67 92 07/02/21 22:40 78 23 89 L PG Care Time/CCT Total # of Minutes Spent Total Time Spent with Patient: Total time spent is greater than 50% in coordination of care (as documented) at patient's floor/unit and/or counseling patient: Coding Level of Care Code None Diagnoses Cholecystectomy planned
[2021-07-03] MEDS: ASPIRIN 325 MG ECTAB PO SCH (12:58)
--- NOTE | 2021-07-03 14:00 | Hospitalist Progress Note ---
Date of Service July 03, 2021 Assessment & Plan (1) Hypoxia: Plan: #Acute on chronic hypoxia Patient has history of COPD oxygen dependent using 4 L oxygen per minute Postoperatively patient has persistent hypoxia Chest x-ray is clear There is no wheezing on exam -He required BiPAP last night to maintain his sats over 92% Chest x-ray on unremarkable CT of the chest did not show any evidence of pulmonary embolism, significant atelectasis, infiltration pleural effusion despite some improvement patient states persistent hypoxia required 2 L oxygen to keep his sats above 90% BNP is only in 30s Currently on 9 L oxygen to keep his sats above 90% -Continue prednisone Resume diet BMP as needed (2) Hyperlipidemia: Plan: Hold statin for now (3) GERD (gastroesophageal reflux disease): Plan: Continue PPI (4) Cholecystectomy planned: Plan: Status post cholecystectomy on 07/02 Plan: DVT prophylaxis Lovenox 40 mg subcutaneously Admission and Anticipated Discharge Date Admission Date: July 02, 2021 Subjective Patient has no pain currently tolerated oral diet Review of Systems Review of Systems: All 12 organs were reviewed unremarkable unless mentioned above in HPI Constitutional: no fever, no body aches and no malaise Respiratory: + cough and + chest congestion Cardiovascular: as per Subjective / HPI; no chest pain and no chest pain with activity Gastrointestinal: no abdominal pain and no vomiting Physical Exam Physical Exam: general: Alert oriented x3, well-nourished Neck: No lymphadenopathy, supple Respiratory: Lungs are clear to auscultation no chest abnormality Cardiovascular: Regular rate and rhythm no murmur no gallop vegetation Abdomen: Soft bowel sounds active Extremities: No edema no tenderness Skin: No jaundice no rash Neurology: Alert oriented x3 no acute distress moves all extremities Psychiatry mood and affect appropriate Results & Data Results & Data ([facility]) Vital Signs (Past 12 Hours) Vital Signs Temp Pulse Pulse Resp BP Pulse Ox 07/03/21 09:53 61 07/03/21 07:55 36.7 C 79 20 121/71 91 07/03/21 06:55 65 20 94 07/03/21 04:00 35.8 C L 72 18 115/73 91 07/03/21 03:33 68 20 93 PG Care Time/CCT Total # of Minutes Spent Total Time Spent: 40 Total Time Spent with Patient: Total time spent is greater than 50% in coordination of care (as documented) at patient's floor/unit and/or counseling patient: Coding Level of Care Code 84056 Subseq Hosp Care Lvl 3 Diagnoses Hypoxia R09.02 Hyperlipidemia E78.5 GERD (gastroesophageal reflux disease) K21.9 Cholecystectomy planned
[2021-07-03] MEDS: ENOXAPARIN INJ 40 MG/0.4 ML SYR SQ SCH (16:36)
[2021-07-04] MEDS: HYDROCODONE/ACETAMOPHEN 5/325MG TAB PO PRN ×4 (05:23→20:59)
[2021-07-04] MEDS: UMECLIDINIUM/VILANTEROL 62.5/25MCG 7 PUFFS/INHALER INH SCH (08:02)
[2021-07-04] MEDS: predniSONE 20 MG TAB PO SCH (08:03)
[2021-07-04] MEDS: ASCORBIC ACID 500 MG TAB PO SCH (08:03)
[2021-07-04] MEDS: ASPIRIN 325 MG ECTAB PO SCH (11:41)
[2021-07-04] MEDS ORDERED: FUROSEMIDE 40 MG/4 ML VIAL IV STA (15:23)
[2021-07-04] MEDS: ENOXAPARIN INJ 40 MG/0.4 ML SYR SQ SCH (16:13)
--- NOTE | 2021-07-04 17:01 | Hospitalist Progress Note ---
Date of Service July 04, 2021 Assessment & Plan (1) Hypoxia: Plan: #Acute on chronic hypoxia Patient has history of COPD oxygen dependent using 4 L oxygen per minute Postoperatively patient has had persistent hypoxia Chest x-ray is clear There is no wheezing on exam -He required BiPAP last night to maintain his sats over 92% CT of the chest did not show any evidence of pulmonary embolism, significant atelectasis, infiltration pleural effusion despite some improvement patient states persistent hypoxia required 2 L oxygen to keep his sats above 90% BNP is only in 30s Currently on 9 L oxygen to keep his sats above 90% -Continue prednisone Add Lasix 40 mg twice daily Add DuoNeb [id number] Echocardiogram to rule out pulmonary hypertension and right to left shunt Possible pulmonary consult Discussed with the family Continue incentive spirometer (2) Hyperlipidemia: Plan: Hold statin for now (3) GERD (gastroesophageal reflux disease): Plan: Continue PPI (4) Cholecystectomy planned: Plan: Status post cholecystectomy on 07/02 Tolerated diet Plan: DVT prophylaxis Lovenox 40 mg subcutaneously Admission and Anticipated Discharge Date Admission Date: July 02, 2021 Subjective No complaint today Review of Systems Review of Systems: All systems reviewed & are unremarkable except as noted in HPI & below All 12 organs were reviewed unremarkable unless mentioned above in HPI Constitutional: no fever, no body aches and no malaise Respiratory: no cough and no chest congestion Cardiovascular: as per Subjective / HPI; no chest pain and no chest pain with activity Gastrointestinal: no abdominal pain and no vomiting Physical Exam Physical Exam: general: Alert oriented x3, well-nourished Neck: No lymphadenopathy, supple Respiratory: Lungs are clear to auscultation no chest abnormality Cardiovascular: Regular rate and rhythm no murmur no gallop vegetation Abdomen: Soft bowel sounds active Extremities: No edema no tenderness Skin: No jaundice no rash Neurology: Alert oriented x3 no acute distress moves all extremities Psychiatry mood and affect appropriate Results & Data Results & Data ([facility]) Vital Signs (Past 12 Hours) Vital Signs Temp Pulse Pulse Resp BP Pulse Ox 07/04/21 16:10 36.4 C L 59 L 20 115/70 92 07/04/21 16:07 110 H 07/04/21 11:14 36.7 C 63 20 129/79 93 07/04/21 10:00 93 07/04/21 07:12 36.6 C 66 20 114/70 86 L PG Care Time/CCT Total # of Minutes Spent Total Time Spent with Patient: Total time spent is greater than 50% in coordination of care (as documented) at patient's floor/unit and/or counseling patient: Coding Level of Care Code 95055 Subseq Hosp Care Lvl 2 Diagnoses Hypoxia R09.02 Hyperlipidemia E78.5 GERD (gastroesophageal reflux disease) K21.9 Cholecystectomy planned
[2021-07-04] MEDS ORDERED: MAGNESIUM CITRATE 296 ML/BTL PO STA (17:56)
[2021-07-04] MEDS: ALBUT/IPRATROP 3MG/0.5MG NEB 3 ML VIAL NEB SCH (20:01)
[2021-07-05] MEDS: HYDROCODONE/ACETAMOPHEN 5/325MG TAB PO PRN ×4 (04:20→20:21)
[2021-07-05] MEDS: ALBUT/IPRATROP 3MG/0.5MG NEB 3 ML VIAL NEB SCH ×4 (07:56→21:42)
[2021-07-05] MEDS: predniSONE 20 MG TAB PO SCH (08:27)
[2021-07-05] MEDS: UMECLIDINIUM/VILANTEROL 62.5/25MCG 7 PUFFS/INHALER INH SCH (08:28)
[2021-07-05] MEDS: ASCORBIC ACID 500 MG TAB PO SCH (08:28)
--- NOTE | 2021-07-05 10:38 | XCELERA ---
[id number]
--- NOTE | 2021-07-05 11:21 | Pulmonary Consultation ---
Date of Consultation July 05, 2021 Assessment & Plan (1) Acute and chronic respiratory failure with hypoxia: (2) COPD (chronic obstructive pulmonary disease): (3) Morbid obesity: CT chest 07/02/2021 personally reviewed: Severe centrilobular emphysema appreciated bilaterally especially in the upper lobes Dependent atelectasis bilateral lower lobes more on the right side, minimal inferior lobe lingular atelectasis No mediastinal lymphadenopathy 2D echo 07/05/2021: EF 60-65%, no PFO, right ventricle normal in size and function --Acute on chronic hypoxic respiratory failure Etiology is multifactorial Patient does have severe underlying emphysema and COPD He also has obesity and s/p anesthesia most likely had dependent atelectasis of the lower lobes which resulted in worsening VQ mismatch than usual No PFO on 2D echo I do not see any consolidative process on the CTA COVID-19 PCR negative 06/30/2021 BNP 32 -- JOE Continue CPAP nightly and as needed shortness of breath --COPD On Stiolto at home. As per the patient he was not able to tolerate ICS as they gave him thrush Continue with Anoro Patient will benefit from pulmonary rehab as an outpatient Addition of azithromycin 250 mg Gqdyoj-Opbwfhdew-Nhdpzt could be an option but patient's QTC is 470 Recommend outpatient follow-up with pulmonary Plan: I personally think patient was on 4 L nasal cannula even at home given the severe COPD and emphysema that he has It likely got worse when he had the surgery done due to atelectasis leading to VQ mismatch Encourage the patient to continue with incentive spirometry every hour. Out of the bed to chair will also help Patient will likely need oxygen [id number] on discharge. He is on prednisone currently. Okay to start tapering to 20 mg as of tomorrow for 3 days and then stop Case was discussed with Dr Morfin Please note the above document was generated using voice recognition software. It may contain grammatical, syntax or spelling errors.Any formal questions or concerns about the content, text or information contained within the body of this dictation should be directly addressed to the provider for clarification. History of Present Illness Attending Physician: Jeovany Morfin MD History of Present Illness 65-year-old male who came to the hospital for elective laparoscopic cholecystectomy, he developed hypoxia postprocedure and was admitted Past medical history: COPD, on 4-5 l O2 nightly, obesity, dyslipidemia, GERD, JOE on CPAP with 4 L bled into it Pulmonary consult because of persistent hypoxemia At the time of examination patient said that he is doing better compared to yesterday Shortness of breath has improved. He was on 7 L nasal cannula at the time of examination saturating 90-91% He states that he has been using incentive spirometry. Denies any significant abdominal pain on taking deep breaths States that it does hurt when he is moving Occasional cough, does not bring up any phlegm Patient is using CPAP at 4 L bled into it every night He states that he also uses 4 L on and off during the day. Social history: [id number] smoking history, quit at the age of 62, used to do marijuana before. No exposure to chemicals or fumes at work Allergies Allergy/AdvReac Type Severity Reaction Status Date / Time atorvastatin [From Lipitor] AdvReac Intermediate Diarrhea Verified 07/02/21 07:31 Kerosene Allergy Unknown RASH, Uncoded 07/02/21 07:31 LIGHTHEADED AND SICKNESS PETROLEUM AdvReac Unknown NAUSEA Uncoded 07/02/21 07:31 WITH INHALATION, SKIN BUBBLES WITH CONTACT Home Medications Medication Instructions Recorded Confirmed Type albuterol sulfate 90 mcg/actuation 2 puff INHALATION Q4H PRN 01/25/19 07/02/21 History aerosol inhaler aspirin 325 mg tablet 325 mg PO QDL 01/25/19 07/02/21 History cholecalciferol (vitamin D3) 25 1,000 unit PO BID 01/25/19 07/02/21 History mcg (1,000 unit) capsule coQ10 (ubiquinol) 100 mg capsule 100 mg PO BID 01/25/19 07/02/21 History gabapentin 100 mg capsule 200 mg PO TID 01/25/19 07/02/21 History saw palmetto-pumpkin 6 cap PO UD 01/25/19 07/02/21 History cqba-yzymlw-lkfo-B6 320 mg-40 mg-10 mg-15 mg cap (Saw Ironside Complex (pumpkin and Zn)) tiotropium 2.5 mcg-olodaterol 2.5 2 puff INHALATION QAM 01/25/19 07/02/21 History mcg/actuation mist for inhalation (Stiolto Respimat) guaifenesin 200 mg tablet 200 mg PO QID PRN 06/02/20 07/02/21 History meloxicam 15 mg tablet 15 mg PO DAILY PRN 06/02/20 07/02/21 History rosuvastatin 10 mg tablet 5 mg PO HS 06/02/20 07/02/21 History ascorbic acid (vitamin C) 500 mg 500 mg PO QAM 04/29/21 07/02/21 History tablet (Vitamin C) multivitamin 1 tab PO QAM 04/29/21 07/02/21 History omeprazole 20 mg tablet,delayed 20 mg PO DAILY PRN 04/29/21 07/02/21 History release hydrocodone 5 mg-acetaminophen 325 1 - 2 tab PO .q4h- q6h PRN #15 tab 07/02/21 Rx mg tablet Patient History Medical History (Updated 07/05/21 @ 11:16 by Gt Gao MD) BPH (benign prostatic hyperplasia) pt denies Cholelithiasis Chronic back pain Colonic polyp COPD (chronic obstructive pulmonary disease) Coronary artery disease per 02/2021 [place] office note Degenerative disc disease Fatty liver GERD (gastroesophageal reflux disease) mild History of peptic ulcer Hyperlipidemia Kidney stones no surgery Lumbar spinal stenosis Obesity On home oxygen therapy uses oxygen prn SOB Osteoarthritis Pancreatic cyst "fatty deposits" Prediabetes PVD (peripheral vascular disease) MRI abdomen [facility] shows blockage in "leg" unsure of other details. Sleep apnea cpap with 4lpm of oxygen Surgical History (Updated 07/03/21 @ 09:24 by Aziza Maki RN) H/O cataract removal with insertion of prosthetic lens bilateral H/O colonoscopy Hx laparoscopic cholecystectomy (07/02/21) Laparoscopic Cholecystectomy - Brodie Hare DO 07/02/2021 Family History Sister Cancer Mother Hypertension Diabetes Father Diabetes Stroke Social History Smoking Status: Never smoker Tobacco Type: Cigarettes Smoking End Date: 2019; Second Hand Exposure: No; Do You Dip or Chew Tobacco: No; Tobacco Cessation Education Requested by Patient: No Hx Alcohol Use: No Hx Substance Use: No Preferred Language: Andorran Communication Ability: Effective 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 Beliefs That Will Affect Care: None marital status: Current Living Situation: Spouse current occupational status: retired How many Children do You have: 3 Other Information That Helps Us Care for You: No Feels Safe at Home: Yes Safety Concerns: Feels Safe At This Time Assistive Devices: Oxygen - Continuous Assistive Devices Comment: does not remember [employer] Review of Systems Review of Systems: All systems reviewed & are unremarkable except as noted in HPI & below Physical Exam Physical Exam: Constitutional: No acute distress HEENT: EOMI, PERRLA Respiratory system: Decreased air entry bilaterally, no wheeze, no rhonchi, minimal crackles bilaterally CVS: S1-S2 positive, no murmurs or gallops Abdomen: Soft, nontender, nondistended, positive bowel sounds x4, obese Extremities: +2 pulses bilaterally radialis/ dorsalis pedis, no cyanosis, no edema Neuro: Awake alert oriented x3 Psych: Normal mood and affect G/U: No Das Skin: no rashes, warm and dry Lymphatic: no cervical or axillary lymphadenopathy Results & Data Results & Data ([facility]) Vital Signs (Past 12 Hours) Vital Signs Temp Pulse Pulse Resp BP Pulse Ox 07/05/21 11:06 76 20 92 07/05/21 07:58 78 20 93 07/05/21 07:27 53 L 07/05/21 07:19 35.9 C L 57 L 20 121/77 97 07/05/21 03:31 26 H 07/05/21 03:01 55 L 20 129/85 91 07/04/21 23:39 56 L 23 89 L Laboratory Results 07/03/21 07:34 07/03/21 08:29 PG Care Time/CCT Total # of Minutes Spent Total Time Spent with Patient: Total time spent is greater than 50% in coordination of care (as documented) at patient's floor/unit and/or counseling patient: [place] [address] Initial Inpt Care Lvl 3 Patient Type New Diagnoses Acute and chronic respiratory failure with hypoxia J96.21 COPD (chronic obstructive pulmonary disease) J44.9 Morbid obesity E66.01
[2021-07-05] MEDS: ASPIRIN 325 MG ECTAB PO SCH (13:33)
--- NOTE | 2021-07-05 16:37 | Hospitalist Progress Note ---
Date of Service July 05, 2021 Assessment & Plan (1) Hypoxia: Plan: #postoperative acute pulmonary insufficiency on chronic hypoxic respiratory failure Patient has history of COPD oxygen dependent using 4-5 L oxygen per minute Postoperatively patient has had persistent hypoxia Chest x-ray is clear There is no wheezing on exam -Required BiPAP postoperatively to keep his sats above 91st CT of the chest did not show any evidence of pulmonary embolism, significant atelectasis, infiltration pleural effusion despite some improvement patient states persistent hypoxia required 2 L oxygen to keep his sats above 90% BNP is only in 30s Currently on 9 L oxygen to keep his sats above 90% -Continue prednisone Echocardiogram unremarkable there is no evidence of right to left shunt, there is no evidence of pulmonary hypertension Continue DuoNeb [id number] Appreciate pulmonary consult agreeswith above manner Continue incentive spirometer (2) Hyperlipidemia: Plan: Hold statin for now (3) GERD (gastroesophageal reflux disease): Plan: Continue PPI (4) Cholecystectomy planned: Plan: Status post cholecystectomy on 07/02 Tolerated diet Plan: DVT prophylaxis Lovenox 40 mg subcutaneously Admission and Anticipated Discharge Date Admission Date: July 02, 2021 Subjective No complaint today, still he needs it with her oxygen, but better than yesterday Review of Systems Review of Systems: All 12 organs were reviewed unremarkable unless mentioned above in HPI Constitutional: no fever, no body aches and no malaise Respiratory: no cough and no chest congestion Cardiovascular: as per Subjective / HPI; no chest pain and no chest pain with activity Gastrointestinal: no abdominal pain and no vomiting Physical Exam Physical Exam: General: Alert oriented x3, well-nourished Neck: No lymphadenopathy, supple Respiratory: Lungs are clear to auscultation no chest abnormality Cardiovascular: Regular rate and rhythm no murmur no gallop vegetation Abdomen: Soft bowel sounds active Extremities: No edema no tenderness Skin: No jaundice no rash Neurology: Alert oriented x3 no acute distress moves all extremities Psychiatry mood and affect appropriate Results & Data Results & Data ([facility]) Vital Signs (Past 12 Hours) Vital Signs Temp Pulse Pulse Resp BP BP Pulse Ox 07/05/21 15:25 36.4 C L 63 20 114/65 93 07/05/21 11:12 36.7 C 68 20 143/74 H 92 07/05/21 11:06 76 20 92 07/05/21 07:58 78 20 93 07/05/21 07:27 53 L 03/27/22 07:19 35.9 C L 57 L 20 121/77 97 PG Care Time/CCT Total # of Minutes Spent Total Time Spent with Patient: Total time spent is greater than 50% in coordination of care (as documented) at patient's floor/unit and/or counseling patient: Coding Level of Care Code 97188 Subseq Obs Care Lvl 2 Diagnoses Hypoxia R09.02 Hyperlipidemia E78.5 GERD (gastroesophageal reflux disease) K21.9 Cholecystectomy planned
[2021-07-05] MEDS: ENOXAPARIN INJ 40 MG/0.4 ML SYR SQ SCH (17:17)
[2021-07-06] MEDS: HYDROCODONE/ACETAMOPHEN 5/325MG TAB PO PRN ×4 (06:11→15:19)
[2021-07-06] MEDS: ALBUT/IPRATROP 3MG/0.5MG NEB 3 ML VIAL NEB SCH ×3 (07:22→22:01)
[2021-07-06] MEDS: ASCORBIC ACID 500 MG TAB PO SCH (08:33)
[2021-07-06] MEDS: UMECLIDINIUM/VILANTEROL 62.5/25MCG 7 PUFFS/INHALER INH SCH (08:34)
[2021-07-06] MEDS: predniSONE 20 MG TAB PO SCH (08:34)
[2021-07-06] MEDS: ASPIRIN 325 MG ECTAB PO SCH (10:07)
--- NOTE | 2021-07-06 12:45 | Pulmonology Progress Note ---
Date of Service July 06, 2021 Assessment & Plan (1) Acute and chronic respiratory failure with hypoxia: (2) COPD (chronic obstructive pulmonary disease): (3) Morbid obesity: Plan: Impression: 65-year-old male with chronic hypoxemic respiratory failure on 4 L of oxygen at baseline status post elective laparoscopic cholecystectomy with postprocedural hypoxemia. Recommendations: 1. Acute on chronic hypoxemic respiratory failure: The patient was strongly encouraged to get out of bed and be upright. Would recommend that he spend time in the chair unless he is sleeping. Ambulation will also be beneficial. Continue incentive spirometry. Suspect that his hypoxemia is likely related to VQ mismatch. There is no evidence of hypercarbia and no evidence of airspace opacity on his CT scan. Continue Stiolto. No indication for additional antibiotics or steroids from a pulmonary standpoint. He has been placed on prednisone empirically at 40 mg a day. Will rapidly taper to off over the next 3 to 4 days. Possible this is the acute recognition of a chronic problem as it is unclear what the patient's oxygen saturations have been running at home on his baseline 4 to 5 L/min 2. Sleep disordered breathing: Continue nightly CPAP. 3. Would recommend avoiding narcotics in an effort to try and improve respiratory status. Would also recommend against using hypnotics such as Ambien at night without concomitant CPAP. We will continue to follow with you. I suspect that the patient's oxygenation should improve significantly if he is able to increase his activity level. Please note the above document was generated using voice recognition software. It may contain grammatical, syntax or spelling errors.Any formal questions or concerns about the content, text or information contained within the body of this dictation should be directly addressed to the provider for clarification. Admission and Anticipated Discharge Date Admission Date: July 02, 2021 Subjective Patient seen and examined. EMR reviewed. Discussed with off going shaft tender and with patient at bedside. The patient reports that he is feeling better. He continues to require oxygen above his baseline. He is on 4 L at home. He unfortunately remains essentially bedbound. He states he has intentions of getting up and walking once his gets here this afternoon. He is able to pull about 1700 on his incentive spirometer. Review of Systems Review of Systems: All systems reviewed & are unremarkable except as noted in Subjective Physical Exam Constitutional: WD/WN, vitals as above Neck: trachea midline, no thyromegaly Respiratory: normal respiratory effort, lungs clear to auscultation Cardiovascular: RRR, no murmur, no edema Gastrointestinal (Abdomen): normal bowel sounds, soft, nontender, no hepatosplenomegaly Musculoskeletal: Extremities: extremities normal to inspection Skin: no rashes, warm and dry Neurologic: Nonfocal exam Lymphatic: no cervical lymphadenopathy Results & Data Results & Data ([facility]) Vital Signs (Past 12 Hours) Vital Signs Temp Pulse Pulse Resp BP Pulse Ox 07/06/21 10:30 36.4 C L 70 16 118/72 90 07/06/21 07:23 58 L 22 94 07/06/21 07:15 36.6 C 62 16 120/68 92 07/06/21 02:34 24 07/06/21 02:23 55 L 20 117/69 96 Laboratory Results 07/03/21 07:34 07/03/21 08:29 Diagnostic Findings No new imaging PG Care Time/CCT Total # of Minutes Spent Total Time Spent with Patient: Total time spent is greater than 50% in coordination of care (as documented) at patient's floor/unit and/or counseling patient: Coding Level of Care Code 39771 Subseq Hosp Care Lvl 3 Diagnoses Acute and chronic respiratory failure with hypoxia J96.21 COPD (chronic obstructive pulmonary disease) J44.9 Morbid obesity E66.01
[2021-07-06] MEDS: ENOXAPARIN INJ 40 MG/0.4 ML SYR SQ SCH (15:20)
--- NOTE | 2021-07-06 16:29 | Hospitalist Progress Note ---
Date of Service July 06, 2021 Assessment & Plan (1) Hypoxia: Plan: #postoperative acute pulmonary insufficiency on chronic hypoxic respiratory failure Patient has history of COPD oxygen dependent using 4-5 L oxygen per minute Postoperatively patient has had persistent hypoxia Chest x-ray is clear There is no wheezing on exam -Required BiPAP postoperatively to keep his sats above 91st CT of the chest did not show any evidence of pulmonary embolism, significant atelectasis, infiltration pleural effusion despite some improvement patient states persistent hypoxia required 2 L oxygen to keep his sats above 90% BNP is only in 30s Currently on 9 L oxygen to keep his sats above 90% -Continue prednisone Echocardiogram unremarkable there is no evidence of right to left shunt, there is no evidence of pulmonary hypertension Continue DuoNeb [id number] Appreciate pulmonary consult agreeswith above manner Continue incentive spirometer (2) Hyperlipidemia: Plan: Hold statin for now (3) GERD (gastroesophageal reflux disease): Plan: Continue PPI (4) Cholecystectomy planned: Plan: Status post cholecystectomy on 07/02 Tolerated diet Plan: DVT prophylaxis Lovenox 40 mg subcutaneously Admission and Anticipated Discharge Date Admission Date: July 02, 2021 Subjective No complaint, still patient on 7- 8 L oxygen, no shortness of breath, continue current management, the patient was encouraged to be active, tapering predn isone, stop [place] Review of Systems Review of Systems: All 12 organs were reviewed unremarkable unless mentioned above in HPI Constitutional: no fever, no body aches and no malaise Respiratory: no cough and no chest congestion Cardiovascular: as per Subjective / HPI; no chest pain and no chest pain with activity Gastrointestinal: no abdominal pain and no vomiting Physical Exam Physical Exam: General: Alert oriented x3, well-nourished Neck: No lymphadenopathy, supple Respiratory: Lungs are clear to auscultation no chest abnormality Cardiovascular: Regular rate and rhythm no murmur no gallop vegetation Abdomen: Soft bowel sounds active Extremities: No edema no tenderness Skin: No jaundice no rash Neurology: Alert oriented x3 no acute distress moves all extremities Psychiatry mood and affect appropriate Results & Data Results & Data ([facility]) Vital Signs (Past 12 Hours) Vital Signs Temp Pulse Pulse Pulse Resp BP BP 07/06/21 15:03 36.3 C L 74 20 116/68 07/06/21 14:59 74 18 07/06/21 10:30 36.4 C L 70 16 118/72 07/06/21 09:18 130 H 07/06/21 07:23 58 L 22 07/06/21 07:15 36.6 C 62 16 120/68 07/06/21 07:00 60 Pulse Ox 07/06/21 15:03 94 07/06/21 14:59 94 07/06/21 10:30 90 07/06/21 09:18 07/06/21 07:23 94 07/06/21 07:15 92 07/06/21 07:00 PG Care Time/CCT Total # of Minutes Spent Total Time Spent with Patient: Total time spent is greater than 50% in coordination of care (as documented) at patient's floor/unit and/or counseling patient: Coding Level of Care Code 20467 Subseq Obs Care Lvl 2 Diagnoses Hypoxia R09.02 Hyperlipidemia E78.5 GERD (gastroesophageal reflux disease) K21.9 Cholecystectomy planned
[2021-07-06] MEDS ORDERED: HYDROCODONE/ACETAMOPHEN 5/325MG TAB PO PRN (20:51)
[2021-07-06] MEDS: oxyCODONE HCL IR 5 MG TAB (IMMEDIATE RELEASE) PO PRN (21:08)
[2021-07-07] MEDS: ACETAMINOPHEN 500 MG TAB PO SCH ×3 (05:16→21:30)
[2021-07-07] MEDS: oxyCODONE HCL IR 5 MG TAB (IMMEDIATE RELEASE) PO PRN ×3 (05:46→22:40)
[2021-07-07] MEDS: ALBUT/IPRATROP 3MG/0.5MG NEB 3 ML VIAL NEB SCH ×2 (06:58→14:57)
[2021-07-07] MEDS: ASCORBIC ACID 500 MG TAB PO SCH (08:19)
[2021-07-07] MEDS: ASPIRIN 325 MG ECTAB PO SCH (08:19)
[2021-07-07] MEDS: predniSONE 20 MG TAB PO SCH (08:19)
[2021-07-07] MEDS: UMECLIDINIUM/VILANTEROL 62.5/25MCG 7 PUFFS/INHALER INH SCH (08:20)
--- NOTE | 2021-07-07 08:55 | Surgery Progress Note ---
Date of Service July 07, 2021 Assessment & Plan (1) Acute and chronic respiratory failure with hypoxia: (2) Morbid obesity: (3) COPD with hypoxia: (4) Heart disease: (5) Hx laparoscopic cholecystectomy: Plan: From the surgery standpoint he is doing as expected. I will restart his saw palmetto hopefully to help with urination. Discharge recommendations per medicine/pulmonary Admission and Anticipated Discharge Date Admission Date: July 02, 2021 Subjective pt seen. Feeling okay from the surgery. He believes he is almost at his b aseline from a breathing standpoint. He is quite anxious to go home. He is eating and bowels are moving. He would like to be placed back on his saw palmetto as he feels this improves his urination Physical Exam Physical Exam: Alert and oriented no acute distress He is on oxygen. Appears to be comfortable from respiratory Abdomen is soft. Incisions look good. He has expected postoperative incisional tenderness Results & Data ([facility]) Vital Signs (Past 12 Hours) Vital Signs Temp Pulse Pulse Resp BP Pulse Ox 07/07/21 07:03 36.8 C 70 18 123/77 92 07/07/21 06:59 60 20 88 L 07/07/21 03:56 36.6 C 55 L 18 126/75 91 07/06/21 22:58 36.7 C 65 18 127/80 97 07/06/21 22:33 57 L 57 L 21 93 07/06/21 22:19 57 L PG Care Time/CCT Total # of Minutes Spent Total Time Spent with Patient: Total time spent is greater than 50% in coordination of care (as documented) at patient's floor/unit and/or counseling patient: Coding Level of Care Code None Diagnoses Acute and chronic respiratory failure with hypoxia J96.21 Morbid obesity E66.01 COPD with hypoxia J44.9; R09.02 Heart disease I51.9 Hx laparoscopic cholecystectomy Z90.49
--- NOTE | 2021-07-07 10:13 | Pulmonology Progress Note ---
Date of Service July 07, 2021 Assessment & Plan (1) Acute and chronic respiratory failure with hypoxia: (2) COPD (chronic obstructive pulmonary disease): (3) Morbid obesity: Plan: Impression: 65-year-old male with chronic hypoxemic respiratory failure on 4 L of oxygen at baseline status post elective laparoscopic cholecystectomy with postprocedural hypoxemia. He is on 7 L currently with saturations in the mid 90% range. He appears to be back to his baseline Recommendations: 1. Acute on chronic hypoxemic respiratory failure: Patient appears to be back to his baseline at 4 to 5 L/min with oxygen saturations at 90%. He is not having any other respiratory issues. He is appropriate to discharge from pulmonary perspective. He has oxygen at home. He can continue to follow with [facility] in the [facility] setting. 2. Sleep disordered breathing: Continue nightly CPAP. 3. Would recommend avoiding narcotics in an effort to try and improve res piratory status. Would also recommend against using hypnotics such as Ambien at night without concomitant CPAP. The patient appears to be back to his pulmonary baseline. Will sign off for now. Feel free to contact us if we can be of additional assistance Please note the above document was generated using voice recognition software. It may contain grammatical, syntax or spelling errors.Any formal questions or concerns about the content, text or information contained within the body of this dictation should be directly addressed to the provider for clarification. Admission and Anticipated Discharge Date Admission Date: July 02, 2021 Subjective Patient seen and examined. EMR reviewed. The patient is up and ambulatory. He states he feels like he is back to baseline and is anxious to be dismissed from the hospital. He is not coughing wheezing or experiencing any shortness of breath. He states that his O2 concentrator at home will go up to 5 L/min. He is typically on 4 L/min continuously with oxygen saturations at about 90%. When he uses his oxygen bleed with CPAP it bumped up to 95%. He denies any significant lower extremity edema. No chest pains. Review of Systems Review of Systems: All systems reviewed & are unremarkable except as noted in Subjective Physical Exam Constitutional: WD/WN, vitals as above Neck: trachea midline, no thyromegaly Respiratory: normal respiratory effort, lungs clear to auscultation Cardiovascular: RRR, no murmur, no edema Gastrointestinal (Abdomen): normal bowel sounds, soft, nontender, no hepatosplenomegaly Musculoskeletal: Extremities: extremities normal to inspection Skin: no rashes, warm and dry Lymphatic: no cervical lymphadenopathy Results & Data Results & Data ([facility]) Vital Signs (Past 12 Hours) Vital Signs Temp Pulse Pulse Resp BP Pulse Ox 07/07/21 07:03 36.8 C 70 18 123/77 92 07/07/21 06:59 60 20 88 L 07/07/21 03:56 36.6 C 55 L 18 126/75 91 07/06/21 22:58 36.7 C 65 18 127/80 97 07/06/21 22:33 57 L 57 L 21 93 07/06/21 22:19 57 L Laboratory Results 07/03/21 07:34 07/03/21 08:29 Diagnostic Findings No new imaging PG Care Time/CCT Total # of Minutes Spent Total Time Spent with Patient: Total time spent is greater than 50% in coordination of care (as documented) at patient's floor/unit and/or counseling patient: Coding Level of Care Code 73737 Subseq Hosp Care Lvl 2 Diagnoses Acute and chronic respiratory failure with hypoxia J96.21 COPD (chronic obstructive pulmonary disease) J44.9 Morbid obesity E66.01
--- NOTE | 2021-07-07 16:49 | Hospitalist Progress Note ---
Date of Service July 07, 2021 Assessment & Plan (1) Hypoxia: Plan: #postoperative acute pulmonary insufficiency on chronic hypoxic respiratory failure Patient has history of COPD oxygen dependent using 4-5 L oxygen per minute Postoperatively patient has had persistent hypoxia Chest x-ray is clear There is no wheezing on exam -Required BiPAP postoperatively to keep his sats above [address] of the chest did not show any evidence of pulmonary embolism, significant atelectasis, infiltration pleural effusion despite some improvement patient states persistent hypoxia required 2 L oxygen to keep his sats above 90% BNP is only in 30s Currently committing his sats around 88% with 5 L oxygen Echocardiogram unremarkable there is no evidence of right to left shunt, there is no evidence of pulmonary hypertension Initially patient started on DuoNeb [id number] will make it as needed today Continue incentive spirometery Taper of prednisone Appreciate pulmonary consult agrees with above management and plan -If the patient can maintain his sats around 88% tomorrow 5 L oxygen tomorrow patient can be discharged as per my discussion with consulting laboratory associate (2) Hyperlipidemia: Plan: Hold statin for now (3) GERD (gastroesophageal reflux disease): Plan: Continue PPI (4) Cholecystectomy planned: Plan: Status post cholecystectomy on 07/02 Tolerated diet Plan: DVT prophylaxis Lovenox 40 mg subcutaneously Admission and Anticipated Discharge Date Admission Date: July 02, 2021 Subjective No complaint today, discussed with customer relations consultant laboratory associate, recommended to discharge the patient if we can maintain the sats above 88% on four 5 L, is constantly taken make as much as 5 L/min, today status post about 87% on 5 L, Review of Systems Review of Systems: All 12 organs were reviewed unremarkable unless mentioned above in HPI Constitutional: no fever, no body aches and no malaise Respiratory: no cough and no chest congestion Cardiovascular: as per Subjective / HPI; no chest pain and no chest pain with activity Gastrointestinal: no abdominal pain and no vomiting Physical Exam Physical Exam: General: Alert oriented x3, well-nourished Neck: No lymphadenopathy, supple Respiratory: Lungs are clear to auscultation no chest abnormality Cardiovascular: Regular rate and rhythm no murmur no gallop vegetation Abdomen: Soft bowel sounds active Extremities: No edema no tenderness Skin: No jaundice no rash Neurology: Alert oriented x3 no acute distress moves all extremities Psychiatry mood and affect appropriate Results & Data Results & Data ([facility]) Vital Signs (Past 12 Hours) Vital Signs Temp Pulse Pulse Resp BP BP Pulse Ox 07/07/21 14:58 67 22 90 07/07/21 11:56 36.6 C 63 18 125/72 94 07/07/21 07:03 36.8 C 70 18 123/77 92 07/07/21 07:00 56 L 07/07/21 06:59 60 20 88 L PG Care Time/CCT Total # of Minutes Spent Total Time Spent with Patient: Total time spent is greater than 50% in coordination of care (as documented) at patient's floor/unit and/or counseling patient: Coding Level of Care Code 04950 Subseq Hosp Care Lvl 2 Diagnoses Hypoxia R09.02 Hyperlipidemia E78.5 GERD (gastroesophageal reflux disease) K21.9 Cholecystectomy planned
[2021-07-07] MEDS: ENOXAPARIN INJ 40 MG/0.4 ML SYR SQ SCH (17:46)
[2021-07-08] MEDS: ACETAMINOPHEN 500 MG TAB PO SCH (05:06)
[2021-07-08] MEDS: oxyCODONE HCL IR 5 MG TAB (IMMEDIATE RELEASE) PO PRN (06:15)
[2021-07-08] MEDS: ASCORBIC ACID 500 MG TAB PO SCH (07:34)
[2021-07-08] MEDS: ASPIRIN 325 MG ECTAB PO SCH (07:35)
[2021-07-08] MEDS: predniSONE 20 MG TAB PO SCH (07:35)
[2021-07-08] MEDS: UMECLIDINIUM/VILANTEROL 62.5/25MCG 7 PUFFS/INHALER INH SCH (07:35)
--- NOTE | 2021-07-08 11:32 | Pulmonology Progress Note ---
Date of Service July 08, 2021 Assessment & Plan (1) Acute and chronic respiratory failure with hypoxia: (2) COPD (chronic obstructive pulmonary disease): (3) Morbid obesity: Plan: Attending: Dr. Brothers Impression: 65-year-old male with chronic hypoxemic respiratory failure on 4 L of oxygen at baseline status post elective laparoscopic cholecystectomy with postprocedural hypoxemia. He is currently on 5 L/min. Patient reports being back to his baseline Recommendations: 1. Acute on chronic hypoxemic respiratory failure: Patient appears to be back to his baseline at 4 to 5 L/min with oxygen saturations at 90%. He is not having any other respiratory issues. He is appropriate to discharge from pulmonary perspective. He has oxygen at home. He can continue to follow with his [facility] providers in the outpatient setting. He is aware to maintain his saturations between 88 and 92%. Was given a business card for contact if he needs the assistance of the pulmonary office in [place]. 2. Sleep disordered breathing: Continue nightly CPAP. 3. Avoid narcotics in an effort to try and improve respiratory status. Also avoid using hypnotics such as Ambien at night without concomitant CPAP. Thank you for including us in the care of this patient. The pulmonary service will sign off at this time. Patient was given a business card and instructions on how to contact the office should he need local assistance. Otherwise, he will continue to follow with Dr. Osorio from the [place] Patient discussed with the hospital service with Dr. Carranza. Admission and Anticipated Discharge Date Admission Date: July 02, 2021 Subjective Attending: Dr. Brothers Patient seen and examined in room 276. He is on supplemental oxygen at 5 L right now he reports that to be his baseline. He does not have any significant shortness of breath or acute change from his baseline. He had cholecystitis and still has distention of his belly from the CO2. This is certainly making it more difficult for him to take deep breaths. Patient feels as though he is ready for discharge from a pulmonary perspective. He is set up for oxygen at home and uses 5 L and maintains his SaO2 between 88 and 92%. Physiology was explained again to the patient today and he has no questions after our visit. Patient denies any fever, chills, sweats, rigors. He does have some mild sputum which is usual for him. He has no hemoptysis. He denies any chest pain or tightness. He is tolerating the supplemental oxygen well. He does have postnasal drip and dry oropharynx. He is using Chloraseptic to alleviate irritation from his surgical procedure. The patient has no other acute complaints at this time. Review of Systems Review of Systems: A total of 10 systems was reviewed and is negative other than as listed in the HPI Physical Exam Physical Exam: GENERAL : No acute distress EYES: No icterus, gaze conjugate NOSE: No evidence of epistaxis and nasal cannula in place MOUTH: No lesions or candidiasis. Mucosa dry. There is significant posterior nasal drip noted. Patient is using Chloraseptic for irritation from his procedure. Dentures are in place. NECK: Supple LUNGS: CTA B/L, no wheezes, rales or rhonchi. Good inspirational effort HEART: Regular, rate controlled ABDOMEN: Soft, NT, ND, BS Present EXTREMITIES: No LE edema, pedal pulses intact NEURO: A&OX3 Results & Data Results & Data ([facility]) Vital Signs (Past 12 Hours) Vital Signs Temp Pulse Pulse Resp BP BP Pulse Ox 07/08/21 11:09 36.5 C 61 16 153/78 H 90 07/08/21 07:29 36.8 C 58 L 16 142/70 H 90 07/08/21 03:51 67 20 96 07/08/21 03:02 36.2 C L 53 L 16 131/80 93 Critical Care Results & Data Vital Signs (Past 12 Hours) Vital Signs Temp Pulse Pulse Resp BP BP Pulse Ox 07/08/21 11:09 36.5 C 61 16 153/78 H 90 07/08/21 07:29 36.8 C 58 L 16 142/70 H 90 07/08/21 03:51 67 20 96 07/08/21 03:02 36.2 C L 53 L 16 131/80 93 Lab & Micro Results (Past 24 Hours) No Data to Display No Data to Display No Data to Display I & O Totals 24 Hours 07/07/21 07/08/21 07/09/21 06:59 06:59 06:59 Intake Total 460 / 460 600 / 600 Output Total 250 / 250 400 / 400 Balance 210 / 210 200 / 200 Cumulative 06/15/21 15:02 thru 07/08/21 05:59 Intake Total 6001.25 Output Total 1805 Balance 4196.25 RT Ventilator Mngmt (Last Documented) Ventilator Ordered Settings Respiratory Rate 16 07/08/21 11:09 Fraction of Inspired Oxygen 40 07/08/21 03:51 Ventilator - PT Measurements Respiratory Rate 16 PG Care Time/CCT Total # of Minutes Spent Total Time Spent with Patient: Total time spent is greater than 50% in coordination of care (as documented) at patient's floor/unit and/or counseling patient: Coding Level of Care Code 54441 Subseq Hosp Care Lvl 2 Diagnoses Acute and chronic respiratory failure with hypoxia J96.21 COPD (chronic obstructive pulmonary disease) J44.9 Morbid obesity E66.01
--- NOTE | 2021-07-08 11:48 | Discharge Summary ---
Date of Service July 08, 2021 Admission HPI Per Admitting Provider The patient is 65-year-old male with a past medical history significant for COPD, on home oxygen 4 L at night sometimes also using the daytime, history of obesity admitted to this facility for elective laparoscopic cholecystectomy, postoperatively patient developed hypoxia, patient was initially started on #3 facemask which will increase his sats to high 80s and subsequently patient was started BiPAP with a setting of 12/8 and currently the saturation low 90s. On exam patient does not have any wheezing. Vitals are stable, chest x-ray unremarkable. Principal Diagnosis Cholecystitis Acute on chronic respiratory failure Discharge Exam General: A&Ox3. NAD. Cooperative. HEENT: Atraumatic, normocephalic. Pulm: CTAB A&P. -wheezes, -rales, -rhonchi. Symmetrical chest rise. No increase in work of breathing. No respiratory distress. Cardiac: RRR, -mrg. Radial pulses intact and symmetrical. Abdominal: Surgical incision intact, nontender, no dehiscence, no erythema, no warmth Discharge Data Allergies Allergy/AdvReac Type Severity Reaction Status Date / Time atorvastatin [From Lipitor] AdvReac Intermediate Diarrhea Verified 07/02/21 07:31 Kerosene Allergy Unknown RASH, Uncoded 07/02/21 07:31 LIGHTHEADED AND SICKNESS PETROLEUM AdvReac Unknown NAUSEA Uncoded 07/02/21 07:31 WITH INHALATION, SKIN BUBBLES WITH CONTACT Consultations 07/05/21 09:10 Consult Pulmonology Routine Procedures Performed Operation Date: 07/02/21 08:55 Actual Procedures p Laparoscopic Cholecystectomy(Not Applicable) - Brodie Hare, Ordered Studies 07/02/21 17:37 CT angio chest PE protocol Stat Hospital Course (1) Acute and chronic respiratory failure with hypoxia: Az is a 65-year-old with a past medical history respiratory failure with COPD on baseline 4-5 L of oxygen, PVD, GERD, and prediabetes who presented to the hospital with cholecystitis and to add postoperative acute worsening of his oxygen requirements. To do as outpatient: 1. Routine postop follow-up with surgery following cholecystectomy 2. Follow-up with PCP 3. Complete rapid prednisone taper, discharged to continue 20 mg x 2 days then 10 mg x 2 days then stop Acute on chronic respiratory failure with hypoxia History of chronic hypoxic respiratory failure and COPD, oxygen dependent Postop with persistent hypoxia Chest x-ray clear postop, transiently required BiPAP, CT of the chest without evidence of PE/atelectasis/effusion, BNP less than 50, echocardiogram did not show evidence of acute abnormality/shunting/pulmonary hypertension. Patient did gradually clinically improve and was discharged home on his baseline oxygen requirements Pulmonary was consulted and followed during admission, patient was breathing well and given follow-up card/information prior to dischargewas recommended to avoid narcotic medications due to affect breathing/respiratory suppression No antibiotics were indicated for pneumonia during admission (2) COPD (chronic obstructive pulmonary disease): Did well with albuterol 4 times daily or as needed, Umeclid inium/Vilanterol daily (3) Hx laparoscopic cholecystectomy: Presented for scheduled cholecystectomy, had a normal cardiac stress test prior to surgery, history of gallstones symptomatic D[employer] Status post lap kiran 07/02 Wound healing well, abdomen nontender at discharge We will have routine follow-up with surgery Low-fat diet, progress as tolerated Total Time Total Time Spent Total Time Spent (In Minutes): Time spend day of discharge 35 minutes including direct patient care, documentation, review of labs and images, and coordination of care. Discharge Plan Discharge Items Patient Disposition: Home - Self-Care Reason For Visit: Gallstones Discharge Diagnosis: laparoscopic cholecystectomy Activity: Per Instructions section Lifting: No more than 10 pounds Bathing Comment: may shower; no soaking in tubs/pools Exercise/Sports: Wait until after follow-up appointment Driving/Machine Use: no driving if taking narcotics for pain Non-emergency contact: Primary Care Provider and Surgeon Call non-emergency contact if: you have any medication questions, your symptoms worsen, your pain is not controlled, your pain is worsening, your pain is concerning for you, you have a fever, your temperature is above 101.5, your wound has increased redness, your wound has increased drainage and your wound pain has increased Follow-up/Referrals: Brodie Hare DO [Surgeon] - (Please call to schedule follow up in clinic within 2 weeks) Rose Marie Hogan PA-C [Primary Care Provider] - Diet: Regular Addtl Attending Provider Instructions: You are seen in the hospital and underwent a laparoscopic cholecystectomy (gallbladder removal). You had increased oxygen requirements following this and were observed for acute on chronic respiratory failure with a history of COPD. You clinically progressed and did well, and returned to your normal home requirements of 5 L maintaining oxygen saturation greater than 90%. You are being discharged home to complete a rapid taper of prednisone as noted below. If you experience any new or worsening symptoms, please seek prompt medical reevaluation. You have been prescribed a steroid, prednisone. Please take prednisone 20 mg daily for 2 days, prednisone 10 mg for 2 days, then stop taking prednisone. If you experience any worsening respiratory symptoms, please contact the pulmonary office in [place] or call 911 for reevaluation in the emergency department. Please avoid narcotic medications if at all possible as these can reduce respiratory status/drive. You may continue to use your home oxygen to maintain oxygen levels greater than 90%. Of note oxygen levels of 100% or not normal, and if your oxygen level is greater than 94% you should turn down your oxygen slightly to maintain a level between 90-94%. A follow-up appointment has been set up for you with surgery as noted above. A follow-up appointment is being scheduled for you with your primary care provider. You should be seen within 1 week. If you do not receive a call to confirm this appointment within 48 hours, please call their office at the number above. If you develop any new or worsening symptoms including fever, chills, sweats, chest pain, chest pressure, difficulty breathing, uncontrolled nausea/vomiting, rash, wheezing, passing out or nearly passing out, bleeding, black/bloody bowel movements, or other new or concerning symptoms please call your primary care physician, or call 911 for re-evaluation in the emergency department if you are very concerned. Pending Studies at Discharge: Yes Studies:: surgical pathology Stand-Alone Forms: [facility] Medications and DC Order Prescriptions: New hydrocodone-acetaminophen 5-325 mg tablet 1 - 2 tab PO .q4h- q6h PRN (Reason: pain, for initial therapy, max 6 tabs per day ) Qty: 15 RF: 0 prednisone 10 mg tablet See Rx Instructions PO .COMPLEX Qty: 6 RF: 0 Continued guaifenesin 200 mg tablet 200 mg PO QID PRN (Reason: Congestion) RF: 0 meloxicam 15 mg tablet 15 mg PO DAILY PRN (Reason: Pain) RF: 0 rosuvastatin 10 mg tablet 5 mg PO HS RF: 0 aspirin 325 mg Tablet 325 mg PO QDL RF: 0 gabapentin 100 mg Capsule 200 mg PO TID RF: 0 albuterol sulfate 90 mcg/actuation Hfa Aerosol Inhaler 2 puff INHALATION Q4H PRN (Reason: Shortness Of Breath Or Wheezing) RF: 0 cholecalciferol (vitamin D3) 1,000 unit Capsule 1,000 unit PO BID RF: 0 Saw [place] Complex(pumpk-Zn) 652-72-21-15 mg Capsule 6 cap PO UD RF: 0 coQ10 (ubiquinol) 100 mg Capsule 100 mg PO BID RF: 0 Stiolto Respimat 2.5-2.5 mcg/actuation Mist 2 puff inhalation QAM RF: 0 multivitamin Tablet 1 tab PO QAM RF: 0 ascorbic acid (vitamin C) [Vitamin C] 500 mg Tablet 500 mg PO QAM RF: 0 omeprazole 20 mg Tablet,Delayed Release (Dr/Ec) 20 mg PO DAILY PRN (Reason: Heartburn) RF: 0 Discharge Orders: Discharge Order (Routine); Ordered 07/08/21 Ordered By: Ton Carranza Admission Data Admit Date/Time: 07/02/21 13:15 Attending Provider: Ton Carranza Admit Provider: Jeovany Morfin Primary Care Provider: Rose Marie Hogan Other Providers: Gt Gao Coding Level of Care Code D/C DAY MANAGEMENT >30 MINS Diagnoses Acute and chronic respiratory failure with hypoxia J96.21 COPD (chronic obstructive pulmonary disease) J44.9 Hx laparoscopic cholecystectomy Z90.49
== END 2021-07-08 14:20 | disposition home or self-care (01) | DRG 417 ==
LOC: ASU 07:07 → 2W 13:15 → SUATTDRO 13:15 → 2N 07-03 11:04